=== PATIENT | female | born 1970 | race Hispanic/Latino ===

== ENCOUNTER 2019-09-21 12:41 | Emergency (ER) | payer OTHER ==
[2019-09-21 13:17] LABS: Urine Blood 2+ (NEG); Urine Glucose NEGATIVE (NEG); Urine Protein NEGATIVE (NEG); Urine Specific Gravity 1.015 (1.005-1.030)
[2019-09-21 13:33] LABS: Absolute Lymphocytes (CBC) 2.2 K/uL (0.7-4.9); Basophils % 0.5 % (0-1.3); Lymphocytes % 35.5 % (15.3-44.8); MPV 9.6 fL (7.6-11.3); RBC Red Blood Cell Count 4.49 M/uL (3.86-4.86)
[2019-09-21 13:48] LABS: ALT/SGPT 45 U/L (12-78); AST/SGOT 23 U/L (15-37); Albumin 3.6 g/dL (3.4-5.0); Alkaline Phosphatase 94 U/L (45-117); BUN Blood Urea Nitrogen 17 mg/dL (7-18); Bicarbonate 28 mmol/L (21-32); Bilirubin Direct < 0.1 mg/dL (0-0.2); Bilirubin Total 0.2 mg/dL (0.2-1.0); Glucose Level 92 mg/dL (74-106); Lipase 98 U/L (73-393); Potassium 3.8 mmol/L (3.5-5.1); Protein, Total 7.3 g/dL (6.4-8.2); Sodium Level 140 mmol/L (136-145)
[2019-09-21 13:52] LABS: Urine Bacteria 20-50 /HPF (<20)
[2019-09-21 13:53] LABS: Urine Culture Reflex Order REFLEXED
--- NOTE | 2019-09-21 15:12 | RAD REPORT ---
EXAM DESCRIPTION: CTAbdomen Pelvis W Contrast - 09/21/2019 3:01 pm CLINICAL HISTORY: Abdominal pain. FLANK PAIN COMPARISON: No comparisons TECHNIQUE: Biphasic CT imaging of the abdomen and pelvis was performed with 100 ml non-ionic IV cont rast. All CT scans are performed using dose optimization technique as appropriate and may include automated exposure control or mA/KV adjustment according to patient size. FINDINGS: The lung bases are clear. Mild diffuse fatty liver infiltration is seen. No focal mass or biliary dilatation. The spleen, pancr eas, adrenal glands are normal. 24 mm left renal cyst versus caliceal diverticulum. No right-sided cy st or mass. No hydronephrosis on either side. No bowel obstruction, free air, free fluid or abscess. Small fat containing supraumbilical hernia. Th e appendix is normal. Moderate stool is retained throughout the colon. No evidence of significant lym phadenopathy. No suspicious bony findings. IMPRESSION: No acute intra-abdominal or pelvic finding. Fatty liver.
--- NOTE | 2019-09-21 15:25 | EDPHYS ---
Physician Documentation [facility] Name: Kyra Barboza Age: 49 yrs Sex: Female : 1970 Arrival Date: 09/21/2019 Time: 12:44 Bed 26 Private MD: CORIE Physician Hermelindo Wu HPI: 09/21 13:56 This 49 yrs old Female presents to ER via Ambulatory with complaints of Back pm1 Pain. 13:56 The patient presents with pain that is acute, with no known mechanism of injury. The pm1 symptoms are located in the low back. Onset: The symptoms/episode began/occurred 4 day(s) ago. The pain does not radiate. Associated signs and symptoms: Pertinent positives: bilateral lower back pain when urinating, Pertinent negatives: abdominal pain, dysuria, fever, numbness, tingling, vomiting, weakness. The problem was sustained similar presentation to prior urinary tract infections. Modifying factors: The patient symptoms are alleviated by nothing, the patient symptoms are aggravated by urinating. Severity of symptoms: in the emergency department the symptoms are actually worse. The patient has experienced similar episodes in the past, a few times. 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 - Social history:: Smoking status: Patient/guardian denies using tobacco. - Ebola Screening: : Patient negative for fever greater than or equal to 101.5 degrees Fahrenheit, and additional compatible Ebola Virus Disease symptoms Patient denies exposure to infectious person Patient denies travel to an Ebola-affected area in the 21 days before illness onset No symptoms or risks identified at this time. ROS: 13:56 Constitutional: Negative for fever, chills, and weight loss, Cardiovascular: Negative pm1 for chest pain, palpitations, and edema, Respiratory: Negative for shortness of breath, cough, wheezing, and pleuritic chest pain, Abdomen/GI: Negative for abdominal pain, nausea, vomiting, diarrhea, and constipation. 13:56 : Negative for injury, bleeding, discharge, and swelling, MS/Extremity: Negative for injury and deformity, Skin: Negative for injury, rash, and discoloration, Neuro: Negative for headache, weakness, numbness, tingling, and seizure. 13:56 Back: Positive for of the left low back and right low back, pain, Negative for decreased range of motion. Exam: 13:56 Constitutional: This is a well developed, well nourished patient who is awake, alert, pm1 and in no acute distress. Head/Face: Normocephalic, atraumatic. Neck: Trachea midline, no thyromegaly or masses palpated, and no cervical lymphadenopathy. Supple, full range of motion without nuchal rigidity, or vertebral point tenderness. No Meningismus. Chest/axilla: Normal chest wall appearance and motion. Nontender with no deformity. No lesions are appreciated. Cardiovascular: Regular rate and rhythm with a normal S1 and S2. No gallops, murmurs, or rubs. Normal PMI, no JVD. No pulse deficits. Respiratory: Lungs have equal breath sounds bilaterally, clear to auscultation and percussion. No rales, rhonchi or wheezes noted. No increased work of breathing, no retractions or nasal flaring. Abdomen/GI: Soft, non-tender, with normal bowel sounds. No distension or tympany. No guarding or rebound. No evidence of tenderness throughout. Back: No spinal tenderness. No costovertebral tenderness. Full range of motion. Skin: Warm, dry with normal turgor. Normal color with no rashes, no lesions, and no evidence of cellulitis. MS/ Extremity: Pulses equal, no cyanosis. Neurovascular intact. Full, normal range of motion. 13:56 Neuro: Orientation: is normal, Motor: is normal, moves all fours. Vital Signs: 12:58 BP 118 / 91; Pulse 74; Resp 16 S; Temp 98.1(O); Pulse Ox 97% on R/A; Weight 65.77 kg ca1 (R); Height 5 ft. 2 in. (157.48 cm) (R); Pain 6/10; 13:59 BP 111 / 81; Pulse 65; Resp 18; Pulse Ox 98% on R/A; mg2 15:20 BP 119 / 86; Pulse 62; Resp 18; Pulse Ox 100% on R/A; mg2 12:58 Body Mass Index 26.52 (65.77 kg, 157.48 cm) ca1 MDM: 12:55 Patient medically screened. marina 13:10 ED course: Patient refused pain medications. pm1 13:46 Data reviewed: vital signs. Data interpreted: Pulse oximetry: on room air is 97 %. pm1 Interpretation: normal. 15:23 Counseling: I had a detailed discussion with the patient and/or guardian regarding: the pm1 historical points, exam findings, and any diagnostic results supporting the discharge/admit diagnosis, lab results, radiology results, the need for outpatient follow up, to return to the emergency department if symptoms worsen or persist or if there are any questions or concerns that arise at home. 09/21 13:05 Order name: Urine Dipstick--Ancillary (enter results); Complete Time: 13:40 ms 09/21 13:09 Order name: Basic Metabolic Panel; Complete Time: 13:54 pm1 09/21 13:09 Order name: CBC with Diff; Complete Time: 13:40 pm1 09/21 13:09 Order name: Creatinine for Radiology; Complete Time: 13:49 pm1 09/21 13:09 Order name: Hepatic Function; Complete Time: 13:54 pm1 09/21 13:09 Order name: Lipase; Complete Time: 13:54 pm1 09/21 13:09 Order name: IV Saline Lock; Complete Time: 13:59 pm1 09/21 13:09 Order name: Labs collected and sent; Complete Time: 13:59 pm1 09/21 13:09 Order name: Urine Test (obtain specimen); Complete Time: 14:35 pm1 09/21 13:09 Order name: Urine Microscopic Only; Complete Time: 13:54 pm1 09/21 13:09 Order name: CT Abd/Pelvis - IV Contrast Only; Complete Time: 15:21 pm1 09/21 13:54 Order name: Urine Culture EDMS Administered Medications: 15:33 Drug: Rocephin 1 grams Route: IV; Rate: calculated rate; Site: right antecubital; mg2 15:33 Follow up: Response: No adverse reaction; IV Status: Completed infusion mg2 Disposition: 09/22 07:31 Co-signature as Attending Physician, Hermelindo Wu MD I agree with the assessment and marina plan of care. Disposition: 09/21/19 15:23 Discharged to Home. Impression: Urinary tract infection, site not specified, Low back pain. - Condition is Stable. - Discharge Instructions: Back Pain, Adult, Urinary Tract Infection, Adult. - Prescriptions for Bactrim DS 800- 160 mg Oral Tablet - take 1 tablet by ORAL route every 12 hours for 10 days; 20 tablet. - Medication Reconciliation Form, Thank You Letter, Antibiotic Education, Prescription Opioid Use form. - Follow up: Emergency Department; When: As needed; Reason: Worsening of condition. Follow up: Private Physician; When: 2 - 3 days; Reason: Recheck today's complaints, Continuance of care, Re-evaluation by your physician. - Problem is new. - Symptoms have improved. Signatures: Dispatcher [employer] EDMS Hermelindo Wu MD MD cha Marinas, Patrick, NP VERIFIER OPERATOR pm1 Rashid Baldwin RN RN mg2 Libby Diego RN RN ca1 Corrections: (The following items were deleted from the chart) 09/21 15:40 15:23 09/21/2019 15:23 Discharged to Home. Impression: Urinary tract infection, site mg2 not specified; Low back pain. Condition is Stable. Forms are Medication Reconciliation Form, Thank You Letter, Antibiotic Education, Prescription Opioid Use. Follow up: Emergency Department; When: As needed; Reason: Worsening of condition. Follow up: Private Physician; When: 2 - 3 days; Reason: Recheck today's complaints, Continuance of care, Re-evaluation by your physician. Problem is new. Symptoms have improved. pm1
--- NOTE | 2019-09-21 15:25 | ER ---
Nurse's Notes [facility] Name: Kyra Barboza Age: 49 yrs Sex: Female : 1970 Arrival Date: 09/21/2019 Time: 12:44 Bed 26 Private MD: Diagnosis: Urinary tract infection, site not specified;Low back pain Presentation: 09/21 12:57 Presenting complaint: Patient states: mid and low back pain started 4 days ago. Denies ca1 fever and urinary s/s. Transition of care: patient was not received from another setting of care. Onset of symptoms was September 21, 2019. Risk Assessment: Do you want to hurt yourself or someone else? Patient reports no desire to harm self or others. Initial Sepsis Screen: Does the patient meet any 2 criteria? No. Patient's initial sepsis screen is negative. Does the patient have a suspected source of infection? No. Patient's initial sepsis screen is negative. Care prior to arrival: None. 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 - Social history:: Smoking status: Patient/guardian denies using tobacco. - Ebola Screening: : Patient negative for fever greater than or equal to 101.5 degrees Fahrenheit, and additional compatible Ebola Virus Disease symptoms Patient denies exposure to infectious person Patient denies travel to an Ebola-affected area in the 21 days before illness onset No symptoms or risks identified at this time. Screenin:56 Abuse screen: Denies threats or abuse. Denies injuries from another. Nutritional mg2 screening: No deficits noted. Tuberculosis screening: No symptoms or risk factors identified. Fall Risk IV access (20 points). Assessment: 13:54 General: Appears in no apparent distress. comfortable, Behavior is calm, cooperative. mg2 Pain: Complains of pain in back Pain does not radiate. Pain currently is 2 out of 10 on a pain scale. Quality of pain is described as aching, Pain began 2-3 days ago. Is intermittent. Neuro: Level of Consciousness is awake, alert, obeys commands, Oriented to person, place, time, situation. Cardiovascular: Capillary refill < 3 seconds Patient's skin is warm and dry. Respiratory: Airway is patent Respiratory effort is even, unlabored, Respiratory pattern is regular, symmetrical. GI: No signs and/or symptoms were reported involving the gastrointestinal system. : Reports pain in bilateral flank(s). EENT: No signs and/or symptoms were reported regarding the EENT system. Derm: Skin is intact, is healthy with good turgor, Skin is pink, warm \T\ dry. normal. Musculoskeletal: Reports pain in back. Vital Signs: 12:58 BP 118 / 91; Pulse 74; Resp 16 S; Temp 98.1(O); Pulse Ox 97% on R/A; Weight 65.77 kg ca1 (R); Height 5 ft. 2 in. (157.48 cm) (R); Pain 6/10; 13:59 BP 111 / 81; Pulse 65; Resp 18; Pulse Ox 98% on R/A; mg2 15:20 BP 119 / 86; Pulse 62; Resp 18; Pulse Ox 100% on R/A; mg2 12:58 Body Mass Index 26.52 (65.77 kg, 157.48 cm) ca1 ED Course: 12:44 Patient arrived in ED. mr 12:52 [place] Hairsh, TIME SIGNAL WIRER is PHCP. pm1 12:52 Hermelindo Wu MD is Attending Physician. pm1 12:58 Triage completed. ca1 12:58 Arm band placed on right wrist. ca1 13:12 Rashid Baldwin, CAROLANN is Primary Nurse. mg2 13:58 Patient has correct armband on for positive identification. Pulse ox on. NIBP on. Door mg2 closed. Warm blanket given. 13:58 No provider procedures requiring assistance completed. Inserted saline lock: 20 gauge mg2 in right antecubital area, using aseptic technique. Blood collected. 14:59 CT completed. Pt tolerated procedure poorly. Patient moved back from CT. bq 15:01 CT Abd/Pelvis - IV Contrast Only In Process Unspecified. EDMS 15:34 IV discontinued, intact, bleeding controlled, No redness/swelling at site. Pressure mg2 dressing applied. Administered Medications: 15:33 Drug: Rocephin 1 grams Route: IV; Rate: calculated rate; Site: right antecubital; mg2 15:33 Follow up: Response: No adverse reaction; IV Status: Completed infusion mg2 Outcome: 15:23 Discharge ordered by . pm1 15:40 Discharged to home ambulatory. mg2 15:40 Condition: stable 15:40 Discharge instructions given to patient, Instructed on discharge instructions, follow up and referral plans. medication usage, Demonstrated understanding of instructions, follow-up care, medications, Prescriptions given X 1. 15:40 Patient left the ED. mg2 Addendum: 09/24/2019 08:36 Addendum: Culture Results: Positive urine culture. No further action required. Bacteria i w sensitive to prescribed antibiotic. Signatures: Dispatcher [employer] EDTN AbisaiJosefabroderickRaya Irene, CAROLANN RN iw Harish Molina, BONNIE TIME SIGNAL WIRER pm1 Rashid Baldwin RN RN mg2 Libby Diego RN RN ca1 Corrections: (The following items were deleted from the chart) 09/21 13:47 12:57 Acuity: SATYA 4 ca1 mg2
[2019-09-21] MEDS ORDERED: CEFTRIAXONE/SWI 1gm 1 GM/10 ML SYR ONE (15:29)
[2019-09-21 16:01] VITALS: TEMP 98.1
[2019-09-21 16:05] VITALS: BP 119/86; O2SAT 100
== END 2019-09-21 15:40 | disposition home or self-care (01) ==
LOC: ER 12:41
DX: N39.0 Urinary tract infection, site not specified (principal); Z88.3 Allergy status to other anti-infective agents; Z88.5 Allergy status to narcotic agent
CPT/HCPCS: 87088; 85025; 87086; 80048; 36415; 80076; 87077; 87186; 83690; 74177; 96374; 99284; Q9967; J0696; 81003; 81015

== ENCOUNTER 2020-05-02 14:25 | Emergency (ER) | payer OTHER ==
--- OUTSIDE RECORDS SUMMARY | 2020-05-02 14:27 | XMS REPORT | Continuity of Care Document ---
:1970 Author Organization [facility] t Address [address] [place] [address] Care Team Providers Name Role Phone Unavailable Unavailable Unavailable Problems Condition Condition Condition Status Onset Resolution Last Treating Co mments Source Name Details Category Date Date Treatment Clinician Date Renal cyst Renal cyst Problem Active [facility] Rash and Rash and Problem [facility] Allergies, Adverse Reactions, Alerts This patient has no known allergies or adverse reactions. Medications This patient has no known medications. Procedures This patient has no known procedures. Encounters Start End Encounter Admission Attending Care Care Encounter Source Date/Time Date/Time Type Type Clinicians Facility Department ID 2019-12-21 2019-12-21 [facility] [id number] [facility] 13:17:00 13:17:00 [facility] Outpat[facility] Clin[facility] 2019-12-10 2019-12-10 [facility] [id number] [facility] 08:00:00 08:00:00 [facility] Outpat[facility] Clinics 2019-09-29 2019-09-29 [facility] [id number] [facility] 02:38:00 02:38:00 [facility] Out[facility] Clin[facility] 2019-09-25 2019-09-25 [facility] [id number] [facility] 15:15:00 15:15:00 [facility] Outpat[facility] Clinics Results This patient has no known results.
--- NOTE | 2020-05-02 14:59 | EDPHYS ---
Physician Documentation [facility] Name: Kyra Barboza Age: 49 yrs Sex: Female : 1970 Arrival Date: 05/02/2020 Time: 14:27 Bed 16 Private MD: ED Physician Sania Rosa HPI: 05/02 14:57 This 49 yrs old Female presents to ER via Ambulatory with complaints of Lower pm1 Back Pain. 14:57 The patient presents with pain that is acute, with no known mechanism of injury. The pm1 symptoms are located in the low back. The pain does not radiate. The problem was sustained Her typical presentation of urinary tract infections. Onset: The symptoms/episode began/occurred 1 week(s) ago. Modifying factors: The patient symptoms are alleviated by nothing, the patient symptoms are aggravated by nothing. Associated signs and symptoms: Pertinent negatives: abdominal pain, dysuria, fever, headache, nausea, vomiting. Severity of symptoms: in the emergency department the symptoms are actually worse. The patient has experienced similar episodes in the past, a few times. The patient has not recently seen a physician. Historical: - Allergies: 14:33 Codeine; sv 14:33 Erythromycin; sv 14:33 narcotic pain meds; sv - PMHx: 14:33 None; sv - PSHx: 14:33 ; sv - Immunization history:: Adult Immunizations up to date. - Social history:: Smoking status: Patient denies any tobacco usage or history of. ROS: 14:57 Constitutional: Negative for fever, chills, and weight loss, Cardiovascular: Negative pm1 for chest pain, palpitations, and edema, Respiratory: Negative for shortness of breath, cough, wheezing, and pleuritic chest pain, Abdomen/GI: Negative for abdominal pain, nausea, vomiting, diarrhea, and constipation. 14:57 : Negative for injury, bleeding, discharge, and swelling, MS/Extremity: Negative for injury and deformity, Skin: Negative for injury, rash, and discoloration, Neuro: Negative for headache, weakness, numbness, tingling, and seizure. 14:57 Back: Positive for flank pain, bilaterally. Exam: 14:57 Constitutional: This is a well developed, well nourished patient who is awake, alert, pm1 and in no acute distress. Head/Face: Normocephalic, atraumatic. 14:57 Back: No spinal tenderness. No costovertebral tenderness. Full range of motion. Skin: Warm, dry with normal turgor. Normal color with no rashes, no lesions, and no evidence of cellulitis. MS/ Extremity: Pulses equal, no cyanosis. Neurovascular intact. Full, normal range of motion. 14:57 Cardiovascular: Exam negative for acute changes, Rate: normal, Rhythm: regular, Pulses: no pulse deficits are appreciated. 14:57 Respiratory: Exam negative for acute changes, respiratory distress, shortness of breath. 14:57 Abdomen/GI: Exam negative for acute changes, Inspection: abdomen appears normal, Palpation: abdomen is soft and non-tender, in all quadrants. 14:57 Neuro: Exam negative for acute changes, Orientation: is normal, Mentation: is normal, Motor: is normal, moves all fours. Vital Signs: 14:33 BP 110 / 83; Pulse 83; Resp 16; Temp 98.9(O); Pulse Ox 100% ; Weight 72.57 kg; Height 5 sv ft. 0 in. (152.40 cm); 14:33 Body Mass Index 31.25 (72.57 kg, 152.40 cm) sv MDM: 14:52 Patient medically screened. pm1 14:57 Data reviewed: vital signs. Data interpreted: Pulse oximetry: on room air is 100 %. pm1 Interpretation: normal. Counseling: I had a detailed discussion with the patient and/or guardian regarding: the historical points, exam findings, and any diagnostic results supporting the discharge/admit diagnosis, the need for outpatient follow up, to return to the emergency department if symptoms worsen or persist or if there are any questions or concerns that arise at home. 05/02 14:57 Order name: Urine Microscopic Only pm1 05/02 15:27 Order name: Urine Dipstick--Ancillary (enter results); Complete Time: 15:39 eb 05/02 14:57 Order name: Urine Dipstick-Ancillary (obtain specimen); Complete Time: 15:15 pm1 05/02 14:57 Order name: Urine Test (obtain specimen); Complete Time: 15:15 pm1 05/02 15:27 Order name: Urine --Ancillary (enter results); Complete Time: 15:39 eb Administered Medications: No medications were administered Disposition: 18:20 Co-signature as Attending Physician, Sania Rosa MD. ma2 Disposition: 05/02/20 14:58 Discharged to Home. Impression: Urinary tract infection, site not specified. - Condition is Stable. - Discharge Instructions: Urinary Tract Infection, Adult. - Prescriptions for Bactrim DS 800- 160 mg Oral Tablet - take 1 tablet by ORAL route every 12 hours for 10 days; 20 tablet. - Medication Reconciliation Form, Thank You Letter, Antibiotic Education, Prescription Opioid Use form. - Follow up: Emergency Department; When: As needed; Reason: Worsening of condition. Follow up: Private Physician; When: 2 - 3 days; Reason: Recheck today's complaints, Continuance of care, Re-evaluation by your physician. - Problem is new. - Symptoms have improved. Signatures: Dispatcher [employer] Lauren Michaud RN RN Harish Royal, ACCOUNTS ADJUSTABLE CLERK ACCOUNTS ADJUSTABLE CLERK pm1 Sania Rosa MD MD ma2 Corrections: (The following items were deleted from the chart) 15:48 14:58 05/02/2020 14:58 Discharged to Home. Impression: Urinary tract infection, site sv not specified. Condition is Stable. Forms are Medication Reconciliation Form, Thank You Letter, Antibiotic Education, Prescription Opioid Use. Follow up: Emergency Department; When: As needed; Reason: Worsening of condition. Follow up: Private Physician; When: 2 - 3 days; Reason: Recheck today's complaints, Continuance of care, Re-evaluation by your physician. Problem is new. Symptoms have improved. pm1
--- NOTE | 2020-05-02 14:59 | ER ---
Nurse's Notes [facility] Name: Kyra Barboza Age: 49 yrs Sex: Female : 1970 Arrival Date: 05/02/2020 Time: 14:27 Bed 16 Private MD: Diagnosis: Urinary tract infection, site not specified Presentation: 05/02 14:32 Chief complaint: Patient states: right low back pain, feels like back is on fire. sv Coronavirus screen: Client denies travel out of the [place] in the last 14 days. At this time, the client does not indicate any symptoms associated with coronavirus-19. Ebola Screen: No symptoms or risks identified at this time. Risk Assessment: Do you want to hurt yourself or someone else? Patient reports no desire to harm self or others. Onset of symptoms was May 02, 2020. 14:32 Method Of Arrival: Ambulatory sv 14:32 Acuity: SATYA 4 sv 14:33 Initial Sepsis Screen: Does the patient meet any 2 criteria? No. Patient's initial sv sepsis screen is negative. Does the patient have a suspected source of infection? No. Patient's initial sepsis screen is negative. Triage Assessment: 14:57 General: Appears in no apparent distress. comfortable. General: Appears Behavior is ls4 calm, cooperative. Pain: Complains of pain in left low back, left mid back, right mid back and right low back Pain currently is 8 out of 10 on a pain scale. Quality of pain is described as burning. Neuro: No deficits noted. Respiratory: No deficits noted. GI: No deficits noted. : Reports pain in bilateral flank(s). Historical: - Allergies: 14:33 Codeine; sv 14:33 Erythromycin; sv 14:33 narcotic pain meds; sv - PMHx: 14:33 None; sv - PSHx: 14:33 ; sv - Immunization history:: Adult Immunizations up to date. - Social history:: Smoking status: Patient denies any tobacco usage or history of. Screenin:58 Abuse screen: Denies threats or abuse. Denies injuries from another. Nutritional ls4 screening: No deficits noted. Tuberculosis screening: No symptoms or risk factors identified. Fall Risk None identified. Assessment: 14:58 General: see triage. ls4 Vital Signs: 14:33 BP 110 / 83; Pulse 83; Resp 16; Temp 98.9(O); Pulse Ox 100% ; Weight 72.57 kg; Height 5 sv ft. 0 in. (152.40 cm); 14:33 Body Mass Index 31.25 (72.57 kg, 152.40 cm) sv ED Course: 14:27 Patient arrived in ED. ds1 14:32 Arm band placed on. sv 14:33 Triage completed. sv 14:43 Harish Molina NP is PHCP. pm1 14:43 Sania Rosa MD is Attending Physician. pm1 14:57 Lorri Gonzalez, RN is Primary Nurse. ls4 14:58 No apparent distress. ls4 14:58 Patient has correct armband on for positive identification. Bed in low position. Call ls4 light in reach. Side rails up X 1. Pulse ox on. NIBP on. Verbal reassurance given. 14:58 No provider procedures requiring assistance completed. Patient did not have IV access ls4 during this emergency room visit. Patient maintains SpO2 saturation greater than 95% on room air. Administered Medications: No medications were administered Outcome: 14:58 Discharge ordered by . pm1 15:48 Patient left the ED. sv Signatures: Lauren Olvera, RN RN Vilma Verma ds1 Harish Molina NP PET CARETAKER pm1 Lorri Gonzalez, RN RN ls4
[2020-05-02 15:38] LABS: Urine Blood 2+ (NEG); Urine Glucose NEGATIVE (NEG); Urine Protein NEGATIVE (NEG); Urine pH 5.5 (5.0-7.0)
[2020-05-02 15:51] LABS: Urine Bacteria <20 /HPF (<20); Urine Culture Reflex Order NOT NEEDED
[2020-05-02 15:52] VITALS: BP 110/83; TEMP 98.9; O2SAT 100
== END 2020-05-02 15:48 | disposition home or self-care (01) ==
LOC: ER 14:25
DX: N39.0 Urinary tract infection, site not specified (principal); Z88.3 Allergy status to other anti-infective agents; Z88.5 Allergy status to narcotic agent
CPT/HCPCS: 81003; 81015; 81025; 99284

== ENCOUNTER 2020-12-26 06:55 | Emergency (ER) | payer OTHER ==
--- OUTSIDE RECORDS SUMMARY | 2020-12-26 06:57 | XMS REPORT | Continuity of Care Document ---
:1970 Author Organization [facility] t Address [address] [place] [address] Care Team Providers Name Role Phone Unavailable [...] c skin c skin [facility] Allergies, Adverse Reactions, Alerts This patient has no known allergies or adverse reactions. Medications This patient has no known medications. Procedures This patient has no known procedures. Encounters Start End Encounter Admission Attending Care Care Encounter Source Date/Time Date/Time Type Type Clinicians Facility Department ID 2019-12-21 2019-12-21 [facility] [id number] [facility] 13:17:00 13:17:00 [facility] Medicine Outpati ent Clinics 2019-12-10 2019-12-10 [facility] [id number] [facility] 08:00:00 08:00:00 [facility] Medicine Outpati ent Clinics 2019-09-29 2019-09-29 [facility] [id number] [facility] 02:38:00 02:38:00 [facility] Medicine Outpati ent Clinics 2019-09-25 2019-09-25 [facility] [id number] [facility] 15:15:00 15:15:00 [facility] Medicine Outpati ent Clinics Results This patient has no known results.
[2020-12-26 07:35] LABS: Urine Blood 1+ (Negative); Urine Glucose Negative (Negative); Urine Protein Negative (Negative); Urine Specific Gravity 1.025 (1.005-1.030)
[2020-12-26 08:08] LABS: Urine Bacteria 20-50 /HPF (<20); Urine Urothelial Cells <5 /HPF (NONE SEEN)
[2020-12-26 08:10] LABS: Urine Specific Gravity/Preg 1.025 (1.005-1.030)
[2020-12-26 08:29] LABS: SARS-COV-2 RT PCR NEGATIVE (NEGATIVE)
--- NOTE | 2020-12-26 08:35 | RAD REPORT ---
EXAM DESCRIPTION: RAD - Chest Single View - 12/26/2020 8:06 am CLINICAL HISTORY: COUGH Chest pain. COMPARISON: No comparisons FINDINGS: Portable technique limits examination quality. The lungs are grossly clear. The heart is normal in size. No displaced fractures. IMPRESSION: No acute intrathoracic process suspected.
--- NOTE | 2020-12-26 08:40 | EDPHYS ---
Physician Documentation [facility] Name: Kyra aBrboza Age: 50 yrs Sex: Female : 1970 Arrival Date: 12/26/2020 Time: 06:57 Bed 6 Private MD: ED Physician Wilfredo Gardner HPI: 12/26 07:40 This 50 yrs old Female presents to ER via Ambulatory with complaints of Cough, rn UTI. 07:40 The patient or guardian reports cough. Onset: The symptoms/episode began/occurred 1 rn week(s) ago. Severity of symptoms: At their worst the symptoms were mild, in the emergency department the symptoms are unchanged. Modifying factors: The symptoms are alleviated by nothing, the symptoms are aggravated by nothing. Associated signs and symptoms: Pertinent positives: sore throat. 07:41 The patient has experienced similar episodes in the past. The patient has not recently rn seen a physician. Reports 1 week of cough, sore throat, congestion, sinus pressure and headache, not improving, no fever. No chronic lung problems, non-smoker. Also would like to get checked for uti since "gets UTI's when weather changes". . Historical: - Allergies: 07:15 Codeine; sv 07:15 Erythromycin; sv 07:15 narcotic pain meds; sv - PMHx: 07:15 UTI; sv - PSHx: 07:15 ; sv - Immunization history:: Client reports having NOT received the Covid vaccine. Flu vaccine is not up to date. - Social history:: Smoking status: Patient denies any tobacco usage or history of. - Family history:: not pertinent. - Hospitalizations: : No recent hospitalization is reported. ROS: 07:41 Constitutional: Negative for fever, chills, and weight loss, Eyes: Negative for injury, rn pain, redness, and discharge, ENT: + congestion and sore throat Cardiovascular: Negative for chest pain, palpitations, and edema, Respiratory: + cough, neg for sob Abdomen/GI: Negative for abdominal pain, nausea, vomiting, diarrhea, and constipation, Back: Negative for injury and pain, : Negative for injury, bleeding, discharge, and swelling, MS/Extremity: Negative for injury and deformity, Skin: Negative for injury, rash, and discoloration, Neuro: Negative for headache, weakness, numbness, tingling, and seizure. Exam: 07:41 Constitutional: This is a well developed, well nourished patient who is awake, alert, rn and in no acute distress. Head/Face: Normocephalic, atraumatic. Eyes: Pupils equal round and reactive to light, extra-ocular motions intact. Lids and lashes normal. Conjunctiva and sclera are non-icteric and not injected. Cornea within normal limits. Periorbital areas with no swelling, redness, or edema. ENT: No stridor Neck: Trachea midline, no thyromegaly or masses palpated, and no cervical lymphadenopathy. Supple, full range of motion without nuchal rigidity, or vertebral point tenderness. No Meningismus. Cardiovascular: Regular rate and rhythm. No pulse deficits. Respiratory: No increased work of breathing, no retractions or nasal flaring. Abdomen/GI: soft, non-tender Skin: Warm, dry MS/ Extremity: Pulses equal, no cyanosis. Neurovascular intact. Full, normal range of motion. Equal circumference. Neuro: Awake and alert, GCS 15, oriented to person, place, time, and situation. Cranial nerves II-XII grossly intact. Motor strength 5/5 in all extremities. Sensory grossly intact. Cerebellar exam normal. Normal gait. Vital Signs: 07:13 BP 124 / 93; Pulse 71; Resp 16; Temp 97; Pulse Ox 100% ; Weight 65.77 kg; Height 5 ft. sv 0 in. (152.40 cm); Pain 0/10; 07:13 Body Mass Index 28.32 (65.77 kg, 152.40 cm) sv MDM: 07:07 Patient medically screened. rn 08:39 Differential Diagnosis: Bronchitis Influenza Upper Respiratory Infection Viral Syndrome rn Pneumonia. Data reviewed: vital signs, nurses notes, lab test result(s), radiologic studies, plain films, and as a result, I will discharge patient. Counseling: I had a detailed discussion with the patient and/or guardian regarding: the historical points, exam findings, and any diagnostic results supporting the discharge/admit diagnosis, lab results, radiology results, the need for outpatient follow up, to return to the emergency department if symptoms worsen or persist or if there are any questions or concerns that arise at home. Response to treatment: There is no appreciated change of the patient's symptoms at this time, and as a result, I will discharge patient. Special discussion: I discussed with the patient/guardian in detail that at this point there is no indication for admission to the hospital. It is understood, however, that if the symptoms persist or worsen the patient needs to return immediately for re-evaluation. ED course: Pt neg for COVID/flu, neg cxr, + possible UTi. . 12/26 07:21 Order name: Strep; Complete Time: 08:37 rn 12/26 07:21 Order name: Urine Microscopic Only; Complete Time: 08:37 rn 12/26 07:35 Order name: Urine Dipstick-Ancillary; Complete Time: 07:41 EDMS 12/26 07:53 Order name: Urine --Ancillary (enter results) eb 12/26 07:21 Order name: XRAY Chest (1 view); Complete Time: 08:37 rn 12/26 07:21 Order name: Urine Dipstick-Ancillary (obtain specimen); Complete Time: 08:04 12/26 07:54 Order name: Urine --Ancillary; Complete Time: 08:37 EDNM 12/26 08:10 Order name: Urine Culture [facility] 12/26 08:18 Order name: Throat Culture [facility] 12/26 08:29 Order name: COVID-19/FLU A+B; Complete Time: 08:37 EDMS Administered Medications: No medications were administered Disposition: 12/26/20 08:40 Discharged to Home. Impression: Cough, Acute upper respiratory infection, unspecified, Urinary tract infection, site not specified. - Condition is Stable. - Discharge Instructions: Urinary Tract Infection, Adult, Viral Respiratory Infection, Cough, Adult. - Prescriptions for Keflex 500 mg Oral Capsule - take 1 capsule by ORAL route every 12 hours for 10 days; 20 capsule. - Medication Reconciliation Form, Thank You Letter, Antibiotic Education, Prescription Opioid Use, Work release form form. - Follow up: Private Physician; When: As needed; Reason: Recheck today's complaints, Re-evaluation by your physician. - Problem is new. - Symptoms have improved. Signatures: Dispatcher [facility] Lauren Olvera RN RN sv Nieto, Roman, MD MD rn Smirch, Shelby, RN RN Corrections: (The following items were deleted from the chart) 07:45 07:22 CORONAVIRUS+MR.LAB.BRZ ordered. [facility] 07:46 07:22 Influenza Screen (A \\T\\ B)+BA.LAB.BRZ ordered. [facility] 08:58 08:40 12/26/2020 08:40 Discharged to Home. Impression: Cough; Acute upper respiratory ss infection, unspecified; Urinary tract infection, site not specified. Condition is Stable. Forms are Medication Reconciliation Form, Thank You Letter, Antibiotic Education, Prescription Opioid Use. Follow up: Private Physician; When: As needed; Reason: Recheck today's complaints, Re-evaluation by your physician. Problem is new. Symptoms have improved. rn
--- NOTE | 2020-12-26 08:40 | ER ---
Nurse's Notes [facility] Name: Kyra Barboza Age: 50 yrs Sex: Female : 1970 Arrival Date: 12/26/2020 Time: 06:57 Bed 6 Private MD: Diagnosis: Cough;Acute upper respiratory infection, unspecified;Urinary tract infection, site not specified Presentation: 12/26 07:13 Chief complaint: Patient states: tickle in her throat that causes a cough for awhile sv and "urine smells" and low back pain x 1 month. Coronavirus screen: Client denies travel out of the [place] in the last 14 days. Client presents with at least one sign or symptom that may indicate coronavirus-19. Standard/surgical mask placed on the client. Provider contacted for isolation considerations. Ebola Screen: No symptoms or risks identified at this time. Initial Sepsis Screen: Does the patient meet any 2 criteria? No. Patient's initial sepsis screen is negative. Does the patient have a suspected source of infection? No. Patient's initial sepsis screen is negative. Risk Assessment: Do you want to hurt yourself or someone else? Patient reports no desire to harm self or others. Onset of symptoms was November 2020. 07:13 Method Of Arrival: Ambulatory sv 07:13 Acuity: SATYA 3 sv Historical: - Allergies: 07:15 Codeine; sv 07:15 Erythromycin; sv 07:15 narcotic pain meds; sv - PMHx: 07:15 UTI; sv - PSHx: 07:15 ; sv - Immunization history:: Client reports having NOT received the Covid vaccine. Flu vaccine is not up to date. - Social history:: Smoking status: Patient denies any tobacco usage or history of. - Family history:: not pertinent. - Hospitalizations: : No recent hospitalization is reported. Screenin:39 Abuse screen: Denies threats or abuse. Denies injuries from another. Nutritional ss screening: No deficits noted. Tuberculosis screening: Never had TB. Fall Risk None identified. Assessment: 07:39 General: Appears in no apparent distress. comfortable, Behavior is calm, cooperative, ss Denies fever, feeling ill, fatigue, chills. Pain: Denies pain. 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 Gait is steady, Speech is normal, Facial symmetry appears normal, Denies weakness dizziness, headache. Cardiovascular: Capillary refill < 3 seconds is brisk in bilateral fingers. Respiratory: Airway is patent Respiratory effort is even, unlabored, Respiratory pattern is regular, symmetrical. Respiratory: Reports cough that is dry, "like a tickle". GI: Abdomen is non-distended, Abd is soft and non tender X 4 quads. Patient currently denies abdominal pain, diarrhea, nausea, vomiting. : Reports odorous urine Denies burning with urination, urinary frequency. EENT: Nares are clear Oral mucosa is moist. Derm: Skin is pink, warm \\T\\ dry. normal. Musculoskeletal: Circulation, motion, and sensation intact. Range of motion: intact in all extremities, Swelling absent. 08:27 Reassessment: Patient appears in no apparent distress at this time. Patient and/or hb family updated on plan of care and expected duration. Pain level reassessed. Patient is alert, oriented x 3, equal unlabored respirations, skin warm/dry/pink. 08:57 Reassessment: Patient appears in no apparent distress at this time. Patient and/or ss family updated on plan of care and expected duration. Pain level reassessed. Vital Signs: 07:13 BP 124 / 93; Pulse 71; Resp 16; Temp 97; Pulse Ox 100% ; Weight 65.77 kg; Height 5 ft. sv 0 in. (152.40 cm); Pain 0/10; 07:13 Body Mass Index 28.32 (65.77 kg, 152.40 cm) sv ED Course: 06:57 Patient arrived in ED. bp1 07:07 Wilfredo Gardner MD is Attending Physician. rn 07:14 Triage completed. sv 07:15 Arm band placed on. sv 07:36 Siena Burt, CAROLANN is Primary Nurse. ss 07:39 Patient has correct armband on for positive identification. Bed in low position. Call ss light in reach. Side rails up X 1. Pulse ox on. NIBP on. Warm blanket given. 08:06 XRAY Chest (1 view) In Process Unspecified. EDMS 08:57 No provider procedures requiring assistance completed. Patient did not have IV access ss during this emergency room visit. Administered Medications: No medications were administered Outcome: 08:40 Discharge ordered by . carolann 08:57 Discharged to home ambulatory. 08:57 Condition: good 08:57 Discharge instructions given to patient, Instructed on discharge instructions, follow up and referral plans. medication usage, Demonstrated understanding of instructions, follow-up care, medications, Prescriptions given X 1. 08:58 Patient left the ED. Signatures: Dispatcher [employer] EDLauren Rowan RN RN Wilfredo Gardner MD MD rn Smirch, Shelby, RN RN Riddhi Bustos RN Yanique Cu[facility]
[2020-12-26 09:12] VITALS: BP 124/93; TEMP 97; O2SAT 100
== END 2020-12-26 08:58 | disposition home or self-care (01) ==
LOC: ER 06:55
DX: J06.9 Acute upper respiratory infection, unspecified (principal); N39.0 Urinary tract infection, site not specified; Z88.3 Allergy status to other anti-infective agents; Z88.5 Allergy status to narcotic agent; Z20.822 Contact with and (suspected) exposure to COVID-19
CPT/HCPCS: 87070; 87088; 87086; 81025; 87081; 0240U; 71045; 99283; 81003; 81015

== ENCOUNTER 2021-03-14 11:42 | Emergency (ER) | payer OTHER ==
--- OUTSIDE RECORDS SUMMARY | 2021-03-14 11:44 | XMS REPORT | Continuity of Care Document ---
:1970 Author Organization [facility] t Address [address] [place] [address] Care Team Providers Name Role Phone Unavailable [...] c skin c skin Memoria eruption [facility] Allergies, Adverse Reactions, Alerts This patient has no known allergies or adverse reactions. Medications This patient has no known medications. Procedures This patient has no known procedures. Encounters Start End Encounter Admission Attending Care Care Encounter Source Date/Time Date/Time Type Type Clinicians Facility Department ID 2019-12-21 2019-12-21 [facility] [id number] [facility] 13:17:00 13:17:00 [facility] Medicine Outpati ent Clinics 2019-12-10 2019-12-10 [facility] [id number] [facility] 08:00:00 08:00:00 [facility] Medicine Outpati ent Clinics 2019-09-29 2019-09-29 [facility] [id number] [facility] 02:38:00 02:38:00 [facility] Medicine Outpati ent Clinics 2019-09-25 2019-09-25 [facility] [id number] [facility] 15:15:00 15:15:00 [facility] Medicine Outpati ent Clinics Results This patient has no known results.
--- NOTE | 2021-03-14 12:12 | ER ---
Nurse's Notes [facility] Name: Kyra Barboza Age: 50 yrs Sex: Female : 1970 Arrival Date: 03/14/2021 Time: 11:44 Bed 5 Private MD: Diagnosis: Acute sinusitis Presentation: 03/14 11:46 Chief complaint: Patient states: "I have been having really bad headaches, sinus jd3 pressure and congestion with green colored mucous.". Coronavirus screen: At this time, the client does not indicate any symptoms associated with coronavirus-19. Ebola Screen: Patient negative for fever greater than or equal to 101.5 degrees Fahrenheit, and additional compatible Ebola Virus Disease symptoms. Initial Sepsis Screen: Does the patient meet any 2 criteria? No. Patient's initial sepsis screen is negative. Does the patient have a suspected source of infection? No. Patient's initial sepsis screen is negative. Risk Assessment: Do you want to hurt yourself or someone else? Patient reports no desire to harm self or others. Onset of symptoms was March 12, 2021. 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 - Social history:: Smoking status: Patient denies any tobacco usage or history of. Screenin:00 Abuse screen: Denies threats or abuse. Denies injuries from another. Nutritional hb screening: No deficits noted. Tuberculosis screening: No symptoms or risk factors identified. Fall Risk None identified. Assessment: 12:00 General: Appears in no apparent distress. Behavior is calm, cooperative. Pain: Pain hb currently is 3 out of 10 on a pain scale. Neuro: Level of Consciousness is awake, alert, obeys commands, Oriented to person, place, time, situation. Cardiovascular: Patient's skin is warm and dry. Respiratory: Respiratory effort is even, unlabored, Respiratory pattern is regular, symmetrical. GI: No signs and/or symptoms were reported involving the gastrointestinal system. : No signs and/or symptoms were reported regarding the genitourinary system. EENT: Reports dinus congestion and drainage. Derm: Skin is pink, warm \\T\\ dry. Musculoskeletal: No signs and/or symptoms reported regarding the musculoskeletal system. Vital Signs: 11:48 BP 108 / 74; Pulse 82; Resp 17 S; Temp 97.9(TE); Pulse Ox 97% on R/A; Weight 62.6 kg jd3 (R); Height 5 ft. 0 in. (152.40 cm) (R); Pain 3/10; 11:48 Body Mass Index 26.95 (62.60 kg, 152.40 cm) jd3 ED Course: 11:44 Patient arrived in ED. ds1 11:47 Triage completed. jd3 11:49 Arm band placed on. jd3 12:00 Riddhi Bustos, RN is Primary Nurse. hb 12:00 Patient has correct armband on for positive identification. Bed in low position. Call hb light in reach. 12:01 Rasheeda Dickinson FNP-C is [facility]. kb 12:01 Wilfredo Gardner MD is Attending Physician. kb 12:24 No provider procedures requiring assistance completed. Patient did not have IV access hb during this emergency room visit. Administered Medications: No medications were administered Outcome: 12:12 Discharge ordered by . kb 12:24 Discharged to home ambulatory. hb 12:24 Condition: stable 12:24 Discharge instructions given to patient, Instructed on discharge instructions, follow up and referral plans. medication usage, Demonstrated understanding of instructions, follow-up care, medications. 12:24 Patient left the ED. hb Signatures: Rasheeda Dickinson FNP-C FNP-Vilma Carvajal ds1 Riddhi Bustos RN CAROLANN Remington Rizvi RN RN j
--- NOTE | 2021-03-14 12:13 | EDPHYS ---
Physician Documentation [facility] Name: Kyra Barboza Age: 50 yrs Sex: Female : 1970 Arrival Date: 03/14/2021 Time: 11:44 Bed 5 Private MD: ED Physician Wilfredo Gardner HPI: 03/14 15:56 This 50 yrs old Female presents to ER via Ambulatory with complaints of Sinus kb Congestion. 15:56 The patient or guardian reports cough, that is intermittent, described as mild. Onset: kb The symptoms/episode began/occurred 4 day(s) ago. Severity of symptoms: At their worst the symptoms were moderate, in the emergency department the symptoms are unchanged. Modifying factors: The symptoms are alleviated by nothing, the symptoms are aggravated by nothing. Associated signs and symptoms: Pertinent positives: rhinorrhea, sore throat, Pertinent negatives: chest pain, diarrhea, ear ache, fever, nausea, vomiting. The patient has not experienced similar symptoms in the past. The patient has not recently seen a physician. Pt reports sinus congestion, rhinorrhea, sore throat and cough that started 4 days ago. Denies fever.. 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 - Social history:: Smoking status: Patient denies any tobacco usage or history of. ROS: 15:55 Constitutional: Negative for fever, chills, and weight loss. kb 15:55 ENT: Positive for rhinorrhea, sinus congestion, sore throat. 15:55 Respiratory: Positive for cough, Negative for dyspnea on exertion, hemoptysis, orthopnea, pleurisy, shortness of breath, sputum production, wheezing. 15:55 All other systems are negative. Exam: 15:56 Constitutional: This is a well developed, well nourished patient who is awake, alert, kb and in no acute distress. Head/Face: Normocephalic, atraumatic. Cardiovascular: Regular rate and rhythm with a normal S1 and S2. No gallops, murmurs, or rubs. No pulse deficits. Respiratory: Respirations even and unlabored. No increased work of breathing, no retractions or nasal flaring. Abdomen/GI: Soft, non-tender. No distention Skin: Warm, dry with normal turgor. Normal color. MS/ Extremity: Pulses equal, no cyanosis. Neurovascular intact. Full, normal range of motion. Neuro: Awake and alert, GCS 15, oriented to person, place, time, and situation. Moves all extremities. Normal gait. Psych: Awake, alert, with orientation to person, place and time. Behavior, mood, and affect are within normal limits. 15:56 ENT: External ear(s): are unremarkable, Ear canal(s): are normal, TM's: are normal, Nose: is normal, Mouth: is normal, Posterior pharynx: is normal. Vital Signs: 11:48 BP 108 / 74; Pulse 82; Resp 17 S; Temp 97.9(TE); Pulse Ox 97% on R/A; Weight 62.6 kg jd3 (R); Height 5 ft. 0 in. (152.40 cm) (R); Pain 3/10; 11:48 Body Mass Index 26.95 (62.60 kg, 152.40 cm) jd3 MDM: 12:01 Patient medically screened. kb 15:55 Data reviewed: vital signs, nurses notes. Data interpreted: Pulse oximetry: on room air kb is 97 %. Interpretation: normal. Counseling: I had a detailed discussion with the patient and/or guardian regarding: the historical points, exam findings, and any diagnostic results supporting the discharge/admit diagnosis, the need for outpatient follow up, a family practitioner, to return to the emergency department if symptoms worsen or persist or if there are any questions or concerns that arise at home. Administered Medications: No medications were administered Disposition: 16:00 Co-signature as Attending Physician, Wilfredo Gardner MD. rn Disposition: 03/14/21 12:12 Discharged to Home. Impression: Acute sinusitis. - Condition is Stable. - Discharge Instructions: Sinusitis, Adult, [id number]. - Medication Reconciliation Form, Thank You Letter, Antibiotic Education, Prescription Opioid Use, Work release form form. - Follow up: Emergency Department; When: As needed; Reason: Worsening of condition. Follow up: Private Physician; When: 2 - 3 days; Reason: Recheck today's complaints, Continuance of care, Re-evaluation by your physician. Signatures: Rasheeda Dickinson, KIMANI-C HEALTHCARE TECHNICIAN-Wilfredo Heath MD MD rn Baxter, Heather, RN RN hb Davies, Jonathon, RN RN jd3 Corrections: (The following items were deleted from the chart) 12:24 12:12 03/14/2021 12:12 Discharged to Home. Impression: Acute sinusitis. Condition is hb Stable. Forms are Medication Reconciliation Form, Thank You Letter, Antibiotic Education, Prescription Opioid Use. Follow up: Emergency Department; When: As needed; Reason: Worsening of condition. Follow up: Private Physician; When: 2 - 3 days; Reason: Recheck today's complaints, Continuance of care, Re-evaluation by your physician. kb
== END 2021-03-14 12:24 | disposition home or self-care (01) ==
LOC: ER 11:42
DX: J01.90 Acute sinusitis, unspecified (principal); Z88.3 Allergy status to other anti-infective agents; Z88.5 Allergy status to narcotic agent
CPT/HCPCS: 99281

== ENCOUNTER 2021-09-29 07:43 | Emergency (ER) | payer OTHER ==
--- OUTSIDE RECORDS SUMMARY | 2021-09-29 07:46 | XMS REPORT | Continuity of Care Document ---
:1970 Author Organization [facility] Address [address] [place] [address] Dr. Keen [address] [place] [id number] Care Team Providers Name Role Phone Unavailable [...] c skin c skin [facility] eruption eruption [facility] Allergies, Adverse Reactions, Alerts This patient has no known allergies or adverse reactions. Medications This patient has no known medications. Procedures This patient has no known procedures. Encounters Start End Encounter Admission Attending Care Care Encounter Source Date/Time Date/Time Type Type Clinicians Facility Department ID 2019-12-21 2019-12-21 [facility] [id number] [facility] 13:17:00 13:17:00 [facility] Medicine Outpat[facility] ent Clinics 2019-12-10 2019-12-10 [facility] [id number] [facility] 08:00:00 08:00:00 [facility] Out[facility] Clin[facility] 2019-09-29 2019-09-29 [facility] [id number] [facility] 02:38:00 02:38:00 [facility] Out[facility] Clinics 2019-09-25 2019-09-25 [facility] [id number] [facility] 15:15:00 15:15:00 [facility] Clinics Results This patient has no known results.
[2021-09-29 08:03] LABS: Urine Blood 2+ (Negative); Urine Glucose Negative (Negative); Urine Protein Negative (Negative); Urine Specific Gravity 1.025 (1.005-1.030); Urine pH 5.5 (5.0-7.0)
--- NOTE | 2021-09-29 09:18 | EDPHYS ---
Physician Documentation [facility] Name: Kyra Barboza Age: 51 yrs Sex: Female : 1970 Arrival Date: 09/29/2021 Time: 07:44 Bed 23 Private MD: ED Physician Sania Rosa HPI: 09/29 09:16 This 51 yrs old Female presents to ER via Ambulatory with complaints of ma2 Urinary Problem. 09:16 Onset: The symptoms/episode began/occurred gradually, 1 day(s) ago. Associated signs ma2 and symptoms: Pertinent negatives: diarrhea, dysuria, nausea, vaginal bleeding, vaginal discharge. Severity of symptoms: At their worst the symptoms were very mild, in the emergency department the symptoms are unchanged. 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 - Social history:: Smoking status: Patient denies any tobacco usage or history of. Patient/guardian denies using alcohol, street drugs, The patient lives with family. - Family history:: not pertinent. ROS: 09:16 Positive for urinary symptoms. ma2 09:16 ENT: Negative for injury, pain, and discharge, Respiratory: Negative for shortness of breath, cough, wheezing, and pleuritic chest pain, Back: Negative for injury and pain. 09:16 All other systems are negative. Exam: 09:16 Constitutional: This is a well developed, well nourished patient who is awake, alert, ma2 and in no acute distress. Chest/axilla: Normal chest wall appearance and motion. Nontender with no deformity. No lesions are appreciated. Cardiovascular: Regular rate and rhythm with a normal S1 and S2. No gallops, murmurs, or rubs. Normal PMI, no JVD. No pulse deficits. Respiratory: Lungs have equal breath sounds bilaterally, clear to auscultation and percussion. No rales, rhonchi or wheezes noted. No increased work of breathing, no retractions or nasal flaring. Abdomen/GI: Soft, non-tender, with normal bowel sounds. No distension or tympany. No guarding or rebound. No evidence of tenderness throughout. Skin: Warm, dry with normal turgor. Normal color with no rashes, no lesions, and no evidence of cellulitis. MS/ Extremity: Pulses equal, no cyanosis. Neurovascular intact. Full, normal range of motion. Neuro: Awake and alert, GCS 15, oriented to person, place, time, and situation. Cranial nerves II-XII grossly intact. Motor strength 5/5 in all extremities. Sensory grossly intact. Cerebellar exam normal. Normal gait. Vital Signs: 07:56 BP 122 / 77; Pulse 79; Resp 17; Temp 97.3; Pulse Ox 99% ; Weight 65.77 kg; Height 5 ft. vg1 2 in. (157.48 cm); Pain 8/10; 09:33 BP 105 / 73; Pulse 74; Resp 16; Pulse Ox 97% ; bp 07:56 Body Mass Index 26.52 (65.77 kg, 157.48 cm) vg1 MDM: 08:01 Patient medically screened. ma2 09:16 Differential diagnosis: menorrhea, nonspecific abdominal pain, urinary tract infection, ma2 vaginosis. Data reviewed: vital signs, nurses notes, EMS record. Counseling: I had a detailed discussion with the patient and/or guardian regarding: the historical points, exam findings, and any diagnostic results supporting the discharge/admit diagnosis, the presence of at least one elevated blood pressure reading (>120/80) during this emergency department visit, the need for outpatient follow up. Response to treatment: the patient's symptoms have markedly improved after treatment. 09/29 08:03 Order name: Urine Dipstick-Ancillary; Complete Time: 09:15 EDMS 09/29 08:00 Order name: Urine Dipstick-Ancillary (obtain specimen); Complete Time: 08:03 ma2 Administered Medications: No medications were administered Disposition Summary: 09/29/21 09:17 Discharge Ordered Location: Home ma2 Condition: Stable ma2 Diagnosis - UTI/ Urinary tract infection, site not specified ma2 Followup: ma2 - With: Private Physician - When: Tomorrow - Reason: Continuance of care Discharge Instructions: - Discharge Summary Sheet ma2 - Dysuria ma2 Forms: - Medication Reconciliation Form ma2 - Thank You Letter ma2 - Antibiotic Education ma2 - Prescription Opioid Use ma2 Prescriptions: - Keflex 750 mg Oral capsule - take 2 capsule by ORAL route 2 times per day for 7 days; 14 capsule; Refills: ma2 0, Product Selection Permitted Signatures: Dispatcher [employer] Sania Trinh MD MD ma2 Megan Cabral RN RN vg1
--- NOTE | 2021-09-29 09:18 | ER ---
Nurse's Notes [facility] Name: Kyra Barboza Age: 51 yrs Sex: Female : 1970 Arrival Date: 09/29/2021 Time: 07:44 Bed 23 Private MD: Diagnosis: UTI/ Urinary tract infection, site not specified Presentation: 09/29 07:56 Chief complaint: Patient states: Burning upon urination x 1 week, denies N/V, states vg1 lower back pain. Coronavirus screen: Vaccine status: Patient reports receiving the 2nd dose of the covid vaccine. Client denies travel out of the [place] in the last 14 days. Ebola Screen: Patient negative for fever greater than or equal to 101.5 degrees Fahrenheit, and additional compatible Ebola Virus Disease symptoms. Initial Sepsis Screen: Does the patient meet any 2 criteria? No. Patient's initial sepsis screen is negative. Does the patient have a suspected source of infection? No. Patient's initial sepsis screen is negative. Risk Assessment: Do you want to hurt yourself or someone else? Patient reports no desire to harm self or others. Onset of symptoms was September 22, 2021. 07:56 Method Of Arrival: Ambulatory vg1 07:56 Acuity: SATYA 4 vg1 Triage Assessment: 07:57 General: Appears in no apparent distress. comfortable, Behavior is calm, cooperative. vg1 Pain: Complains of pain in lower back. : Reports burning with urination, pain in lower back with urination. 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 - Social history:: Smoking status: Patient denies any tobacco usage or history of. Patient/guardian denies using alcohol, street drugs, The patient lives with family. - Family history:: not pertinent. Screenin:00 Abuse screen: Denies threats or abuse. Denies injuries from another. Nutritional bp screening: No deficits noted. Tuberculosis screening: No symptoms or risk factors identified. Fall Risk None identified. Assessment: 08:00 General: SEE TRIAGE NOTE. bp 09:33 Reassessment: PT D/C HOME AMBULATORY, DX WITH UTI. bp Vital Signs: 07:56 BP 122 / 77; Pulse 79; Resp 17; Temp 97.3; Pulse Ox 99% ; Weight 65.77 kg; Height 5 ft. vg1 2 in. (157.48 cm); Pain 8/10; 09:33 BP 105 / 73; Pulse 74; Resp 16; Pulse Ox 97% ; bp 07:56 Body Mass Index 26.52 (65.77 kg, 157.48 cm) vg1 ED Course: 07:44 Patient arrived in ED. am2 07:57 London Kenney, RN is Primary Nurse. bp 07:57 Triage completed. vg1 07:57 Arm band placed on. vg1 07:59 Sania Rosa MD is Attending Physician. ma2 08:00 Patient has correct armband on for positive identification. Bed in low position. Call bp light in reach. Side rails up X2. 09:34 No provider procedures requiring assistance completed. Patient did not have IV access bp during this emergency room visit. Administered Medications: No medications were administered Outcome: 09:17 Discharge ordered by . ma2 09:34 Discharged to home ambulatory. bp 09:34 Condition: stable 09:34 Discharge instructions given to patient, Instructed on discharge instructions, follow up and referral plans. medication usage, Demonstrated understanding of instructions, follow-up care, medications, Prescriptions given X 1. 09:35 Patient left the ED. bp Signatures: Rama Zepeda am2 London Kenney, RN RN Sania Rosa MD MD akMegan Gallego RN RN 1
[2021-09-29 09:42] VITALS: TEMP 97.3
[2021-09-29 09:43] VITALS: BP 105/73; O2SAT 97
== END 2021-09-29 09:35 | disposition home or self-care (01) ==
LOC: ER 07:43
DX: N39.0 Urinary tract infection, site not specified (principal)
CPT/HCPCS: 81003; 99282

== ENCOUNTER 2021-10-31 12:19 | Emergency (ER) | payer OTHER ==
--- OUTSIDE RECORDS SUMMARY | 2021-10-31 12:22 | XMS REPORT | Continuity of Care Document ---
:1970 Author Organization [facility] Address [address] [place] [address] Dr. [address] [place] [id number] Care Team Providers Name Role Phone AbaTeresa Attending Clinician Unavailable Problems Condition Condition Condition Status Onset Resolution Last Treating Co mments Source Name Details Category Date Date Treatment Clinician Date Renal cyst Renal cyst Problem Active [facility] Rash and Rash and Problem Active [facility] Sadie kes - c skin c skin [facility] eruption eruption l Outpati ent Clinics Allergies, Adverse Reactions, Alerts This patient has no known allergies or adverse reactions. Medications This patient has no known medications. Procedures This patient has no known procedures. Encounters Start End Encounter Admission Attending Care Care Encounter Source Date/Time Date/Time Type Type Clinicians Facility Department ID 2021-10-12 Outpatient TOSHIA Troncoso [facility] [id number] 11:33:[facility] Teresa [id number] [facility] 2021-10-12 Outpatient TOSHIA Troncoso [facility] [id number] [facility] 11:15:13 Teresa [id number] [facility] 2021-10-12 Outpatient TOSHIA Troncoso [facility] [id number] [facility] 10:59:26 Teresa [id number] [facility] 2019-12-21 2019-12-21 [facility] [id number] 13:17:00 13:17:00 [facility] Medicine Outpati ent Clinics 2019-12-10 2019-12-10 [facility] [id number] [facility] 08:00:00 08:00:00 [facility] Medicine Outpati ent Clinics 2019-09-29 2019-09-29 Outpatient Yasmeen Vazquez [id number] 02:38:00 02:38:00 [facility] 2019-09-25 2019-09-25 Outpatient Yasmeen Vazquez [id number] 15:15:00 15:15:00 [facility] ent Clinics Results This patient has no known results.
[2021-10-31 13:31] LABS: Urine Blood Trace-intact (Negative); Urine Glucose Negative (Negative); Urine Protein Negative (Negative)
--- NOTE | 2021-10-31 14:26 | RAD REPORT ---
EXAM DESCRIPTION: RAD - Chest Single View - 10/31/2021 2:20 pm CLINICAL HISTORY: COUGH Chest pain. COMPARISON: Chest Single View dated 12/26/2020 FINDINGS: Portable technique limits examination quality. Mild interstitial prominence is seen suggesting a viral infection. The heart is normal in size. No di splaced fractures.
[2021-10-31 15:56] LABS: SARS-COV-2 RT PCR POSITIVE (NEGATIVE)
--- NOTE | 2021-10-31 16:09 | EDPHYS ---
Physician Documentation [facility] Name: Kyra Barboza Age: 51 yrs Sex: Female : 1970 Arrival Date: 10/31/2021 Time: 12:21 Bed 28 Private MD: ED Physician Wilfredo Gardner HPI: 10/31 13:53 This 51 yrs old Female presents to ER via Ambulatory with complaints of Cough. rn 13:53 This 51 yrs old Female presents to ER via Ambulatory with complaints of Cough. rn 13:53 The patient or guardian reports cough, described as mild, with no sputum. Onset: The rn symptoms/episode began/occurred 1 week(s) ago. Severity of symptoms: At their worst the symptoms were mild, in the emergency department the symptoms have improved. Modifying factors: The symptoms are alleviated by nothing, the symptoms are aggravated by nothing. Associated signs and symptoms: Pertinent positives: Congestion, Pertinent negatives: chest pain, diarrhea, vomiting. The patient has not experienced similar symptoms in the past. The patient has not recently seen a physician. Patient reports got sick 1 week ago, fever for 2 days with congestion. Feels like she got better but then started coughing 2 days ago. Denies shortness of breath. Reports feels overall better. Did not see anybody nor did she get tested for anything.. 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 - Social history:: Smoking status: Patient denies any tobacco usage or history of. - Family history:: not pertinent. - Hospitalizations: : No recent hospitalization is reported. ROS: 13:53 Constitutional: Positive for fever Eyes: Negative for injury, pain, redness, and quality improvement coordinator (rn), ENT: Negative for injury, pain, and discharge, Neck: Negative for injury, pain, and swelling, Cardiovascular: Negative for chest pain, palpitations, and edema, Respiratory: Negative for shortness of breath, wheezing, and pleuritic chest pain, Abdomen/GI: Negative for abdominal pain, nausea, vomiting, diarrhea, and constipation, Back: Negative for injury and pain, : Negative for injury, bleeding, discharge, and swelling, MS/Extremity: Negative for injury and deformity, Skin: Negative for injury, rash, and discoloration, Neuro: Negative for headache, weakness, numbness, tingling, and seizure. Exam: 13:53 Constitutional: This is a well developed, well nourished patient who is awake, alert, rn and in no acute distress. Head/Face: Normocephalic, atraumatic. Eyes: Periorbital areas with no swelling, redness, or edema. Cardiovascular: Regular rate and rhythm. No pulse deficits. Respiratory: Speaking full sentences, unlabored. No increased work of breathing, no retractions or nasal flaring. Abdomen/GI: Soft, non-tender Skin: Warm, dry MS/ Extremity: Pulses equal, no cyanosis Neuro: Awake and alert, GCS 15 Vital Signs: 12:48 BP 131 / 90; Pulse 72; Resp 17; Temp 97.5; Pulse Ox 100% ; Weight 68.04 kg; Height 5 ll1 ft. 0 in. (152.40 cm); Pain 2/10; 13:35 BP 122 / 83; Pulse 90; Resp 18; Pulse Ox 100% ; ss7 14:30 BP 106 / 66; Pulse 66; Resp 18; Pulse Ox 97% ; ss7 15:53 BP 107 / 75; Pulse 94; Resp 18; Pulse Ox 98% on R/A; lr4 16:31 BP 107 / 80; Pulse 71; Resp 18; Pulse Ox 99% on R/A; lr4 12:48 Body Mass Index 29.29 (68.04 kg, 152.40 cm) ll1 MDM: 13:24 Patient medically screened. rn 16:07 Differential Diagnosis: Bronchitis Influenza Upper Respiratory Infection Viral Syndrome rn Pneumonia. Data reviewed: vital signs, nurses notes, lab test result(s), radiologic studies, plain films, and as a result, I will discharge patient. Counseling: I had a detailed discussion with the patient and/or guardian regarding: the historical points, exam findings, and any diagnostic results supporting the discharge/admit diagnosis, lab results, radiology results, the need for outpatient follow up, to return to the emergency department if symptoms worsen or persist or if there are any questions or concerns that arise at home. Response to treatment: the patient's symptoms have markedly improved after treatment, and as a result, I will discharge patient. Special discussion: I discussed with the patient/guardian in detail that at this point there is no indication for admission to the hospital. It is understood, however, that if the symptoms persist or worsen the patient needs to return immediately for re-evaluation. ED course: NO oxygen requirement, COVID +, will dc home.. 10/31 13:30 Order name: Urine Dipstick-Ancillary; Complete Time: 14:19 EDMS 10/31 13:31 Order name: Urine --Ancillary (enter results) bd 10/31 13:31 Order name: Urine --Ancillary; Complete Time: 14:19 EDMS 10/31 13:48 Order name: COVID-19/FLU A+B (Document "Date of Onset" if Symptomatic); Complete Time: rn 16:00 10/31 13:48 Order name: XRAY Chest (1 view); Complete Time: 14:39 rn Administered Medications: No medications were administered Disposition Summary: 10/31/21 16:08 Discharge Ordered Location: Home rn Problem: new rn Symptoms: have improved rn Condition: Stable rn Diagnosis - SARS-associated coronavirus as the cause of diseases classified elsewhere rn Followup: rn - With: Private Physician - When: As needed - Reason: Recheck today's complaints, Re-evaluation by your physician Discharge Instructions: - Discharge Summary Sheet rn - COVID-19 rn - 10 Things You Can Do to Manage Your COVID-19 Symptoms at Home - [facility] rn - Viral Illness, Adult rn Forms: - Medication Reconciliation Form rn - Thank You Letter rn - Antibiotic rn stars - Prescription Opioid Use rn Signatures: Dispatcher [employer] Wilfredo Arevalo MD MD rn Lewis, Lynsay RN RN ll1
--- NOTE | 2021-10-31 16:09 | ER ---
Nurse's Notes [facility] Name: Kyra Barboza Age: 51 yrs Sex: Female : 1970 Arrival Date: 10/31/2021 Time: 12:21 Bed 28 Private MD: Diagnosis: SARS-associated coronavirus as the cause of diseases classified elsewhere Presentation: 10/31 12:48 Chief complaint: Patient states: Fever, body aches since Sunday. Cough for 3 days. ll1 Coronavirus screen: Vaccine status: Patient reports receiving the 2nd dose of the covid vaccine. Client denies travel out of the [place] in the last 14 days. cough unrelated to allergies, fatigue, fever, muscle pain, Client presents with at least one sign or symptom that may indicate coronavirus-19. Standard/surgical mask placed on the client. Ebola Screen: Patient denies travel to an Ebola-affected area in the 21 days before illness onset. Initial Sepsis Screen: Does the patient meet any 2 criteria? No. Patient's initial sepsis screen is negative. Does the patient have a suspected source of infection? Yes: Productive cough/pneumonia. Risk Assessment: Do you want to hurt yourself or someone else? Patient reports no desire to harm self or others. Onset of symptoms was October 25, 2021. 12:48 Method Of Arrival: Ambulatory ll1 12:48 Acuity: SATYA 3 ll1 Triage Assessment: 14:07 General: Appears in no apparent distress. Behavior is calm, cooperative. Pain: Denies ss7 pain. EENT: Reports nasal congestion nasal discharge. Neuro: No deficits noted. Cardiovascular: No deficits noted. Respiratory: No deficits noted. Respiratory: Reports cough that is non-productive. GI: No deficits noted. : No deficits noted. Derm: No deficits noted. Musculoskeletal: Reports pain in back. 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 - Social history:: Smoking status: Patient denies any tobacco usage or history of. - Family history:: not pertinent. - Hospitalizations: : No recent hospitalization is reported. Screenin:06 Abuse screen: Denies threats or abuse. Nutritional screening: No deficits noted. ss7 Tuberculosis screening: No symptoms or risk factors identified. Fall Risk None identified. Assessment: 14:08 General: Appears in no apparent distress. see triage. ss7 16:31 Reassessment: Pt departed ed ambulatory with all personal effects, pt in nad, vss lr4 Patient states feeling better. Vital Signs: 12:48 BP 131 / 90; Pulse 72; Resp 17; Temp 97.5; Pulse Ox 100% ; Weight 68.04 kg; Height 5 ll1 ft. 0 in. (152.40 cm); Pain 2/10; 13:35 BP 122 / 83; Pulse 90; Resp 18; Pulse Ox 100% ; ss7 14:30 BP 106 / 66; Pulse 66; Resp 18; Pulse Ox 97% ; ss7 15:53 BP 107 / 75; Pulse 94; Resp 18; Pulse Ox 98% on R/A; lr4 16:31 BP 107 / 80; Pulse 71; Resp 18; Pulse Ox 99% on R/A; lr4 12:48 Body Mass Index 29.29 (68.04 kg, 152.40 cm) ll1 ED Course: 12:21 Patient arrived in ED. as 12:49 Triage completed. ll1 12:49 Arm band placed on. ll1 13:24 Wilfredo Gardner MD is Attending Physician. rn 13:35 Urine --Ancillary (enter results) Sent. ss7 14:06 Patient has correct armband on for positive identification. Placed in gown. Bed in low ss7 position. Call light in reach. 14:06 COVID-19/FLU A+B (Document "Date of Onset" if Symptomatic) Sent. ss7 14:06 No provider procedures requiring assistance completed. Inserted saline lock: 20 gauge ss7 in left antecubital area, using aseptic technique. Blood collected. 14:20 XRAY Chest (1 view) In Process Unspecified. EDMS 16:20 IV discontinued. lr4 Administered Medications: No medications were administered Outcome: 16:08 Discharge ordered by . rn 16:19 Discharged to home ambulatory. lr4 16:19 Condition: good 16:19 Discharge instructions given to patient. 16:31 Patient left the ED. lr4 Signatures: Dispatcher [employer] Hui Morales Roman, MD MD rn Jose Angel, CAROLANN Mckay RN ll1 Teri Banda RN RN ss7 Angela Shaver RN RN lr4
[2021-10-31 18:26] VITALS: BP 107/80; O2SAT 99
[2021-10-31 18:31] VITALS: TEMP 97.5
== END 2021-10-31 16:31 | disposition home or self-care (01) ==
LOC: ER 12:19
DX: U07.1 COVID-19 (principal); Z88.3 Allergy status to other anti-infective agents; Z88.5 Allergy status to narcotic agent
CPT/HCPCS: 81025; 81003; 0240U; 71045; 99284

== ENCOUNTER 2022-07-21 08:49 | Emergency (ER) | payer OTHER ==
--- OUTSIDE RECORDS SUMMARY | 2022-07-21 08:52 | XMS REPORT | Continuity of Care Document ---
:1970 Author Organization [facility] Address [facility] [place] [address] Care Team Providers Name Role Phone AbaTeresa Attending Clinician Unavailable Problems Condition Condition Condition Status Onset Resolution Last Treating Co mments Source Name Details Category Date Date Treatment Clinician Date Renal cyst Renal cyst Problem Active [facility] Rash and Rash and Problem Active Commo n nonspecifi nonspecifi Sp talib c skin c skin - [facility] Allergies, Adverse Reactions, Alerts This patient has no known allergies or adverse reactions. Medications This patient has no known medications. Procedures This patient has no known procedures. Encounters Start End Encounter Admission Attending Care Care Encounter Source Date/Time Date/Time Type Type Clinicians Facility Department ID [facility]-10[facility] [id number] 11:[facility]09 Teresa [id number] [facility] 2021-10-[address] [facility] [id number] 11:15:13 Teresa [id number] [facility] 2021-10-12 Outpatient [facility] [id number] Common 10:59:26 Teresa [id number] [facility] 2019-12-21 2019-12-21 [facility] [id number] Common 13:17:00 13:17:00 [facility] 2019-12-10 2019-12-10 [facility] [id number] Common 08:00:00 08:00:00 [facility] 2019-09-29 2019-09-29 [facility] [id number] Common 02:38:00 02:38:[address] [facility] [address] [facility] 2019-09-25 2019-09-25 Outpatient Londonrome Taylor [id number] Common 15:15:00 15:15:00 [facility] Results This patient has no known results.
[2022-07-21 09:08] LABS: Urine Blood 2+ (Negative); Urine Glucose Negative (Negative); Urine Protein Negative (Negative); Urine Specific Gravity 1.025 (1.005-1.030)
[2022-07-21 09:31] LABS: Urine Mucus Slight /HPF (None Seen)
--- NOTE | 2022-07-21 09:38 | ER ---
Nurse's Notes [facility] Name: Kyra Barboza Age: 52 yrs Sex: Female : 1970 Arrival Date: 07/21/2022 Time: 08:52 Bed 19 Private MD: Diagnosis: UTI/ Urinary tract infection, site not specified;Hematuria, unspecified Presentation: 07/21 09:00 Chief complaint: Patient states: mid back pain that radiates to the lower back x 1 vg1 months, denies ABD pain, burning upon urination, or frequency. Coronavirus screen: Vaccine status: Patient reports receiving the 2nd dose of the covid vaccine. Client denies travel out of the [place] in the last 14 days. Ebola Screen: Patient negative for fever greater than or equal to 101.5 degrees Fahrenheit, and additional compatible Ebola Virus Disease symptoms Patient denies exposure to infectious person. Initial Sepsis Screen: Does the patient meet any 2 criteria? No. Patient's initial sepsis screen is negative. Does the patient have a suspected source of infection? No. Patient's initial sepsis screen is negative. Risk Assessment: Do you want to hurt yourself or someone else? Patient reports no desire to harm self or others. Onset of symptoms was June 20, 2022. 09:00 Method Of Arrival: Ambulatory vg1 09:00 Acuity: SATYA 3 vg1 Triage Assessment: 09:01 General: Appears in no apparent distress. comfortable, Behavior is calm, cooperative. vg1 Pain: Complains of pain in back. : Urine is cloudy, Denies burning with urination, inability to void, urinary frequency. Musculoskeletal: Circulation, motion, and sensation intact. Historical: - Allergies: 09:01 Codeine; vg1 09:01 Erythromycin; vg1 09:01 narcotic pain meds; vg1 - Home Meds: 09:01 None [Active]; vg1 - PMHx: 09:01 Hernia; UTI; vg1 - PSHx: 09:01 section; vg1 - Immunization history:: Client reports receiving the 2nd dose of the Covid vaccine. - Social history:: Smoking status: Patient denies any tobacco usage or history of. - Family history:: not pertinent. - Hospitalizations: : No recent hospitalization is reported. Screenin:02 Abuse screen: Denies threats or abuse. Nutritional screening: No deficits noted. vg1 Tuberculosis screening: No symptoms or risk factors identified. Fall Risk None identified. Assessment: 09:07 : Reports burning sensation in right flank. She reports she feels like this when she mb8 gets a UTI. Denies burning with urination and denies frequency. Denies burning with urination, cramping urinary frequency, urgency. Vital Signs: 09:00 BP 132 / 82; Pulse 74; Resp 14; Temp 98.2; Pulse Ox 99% ; Weight 68.04 kg; Height 5 ft. vg1 0 in. (152.40 cm); Pain 0/10; 09:00 Body Mass Index 29.29 (68.04 kg, 152.40 cm) vg1 ED Course: 08:52 Patient arrived in ED. mr 08:52 Wilfredo Gardner MD is Attending Physician. rn 09:01 Triage completed. vg1 09:01 Arm band placed on. vg1 09:02 Shad Turcios, RN is Primary Nurse. mb8 09:02 Patient has correct armband on for positive identification. Bed in low position. Call [facility] light in reach. 09:08 No provider procedures requiring assistance completed. mb8 09:59 Patient did not have IV access during this emergency room visit. mb8 Administered Medications: No medications were administered Medication: 09:03 VIS not applicable for this client. vg1 Outcome: 09:37 Discharge ordered by . rn 09:45 Discharged to home ambulatory. mb8 09:45 Condition: stable 09:45 Discharge instructions given to patient, Instructed on discharge instructions, follow up and referral plans. medication usage, Demonstrated understanding of instructions, follow-up care, medications, Prescriptions given X 1. 09:59 Patient left the ED. mb8 Signatures: Barone Josefa ngo Wilfredo Gardner MD MD rn Garcia, Victoria RN RN vg1 Shad Turcios, CAROLANN RN mb8
--- NOTE | 2022-07-21 09:38 | EDPHYS ---
Physician Documentation [facility] Name: Kyra Barboza Age: 52 yrs Sex: Female : 1970 Arrival Date: 07/21/2022 Time: 08:52 Bed 19 Private MD: ED Physician Wilfredo Gardner HPI: 07/21 08:56 This 52 yrs old Female presents to ER via Unassigned with complaints of low rn back pain. 08:56 The patient presents with pain that is acute, with no known mechanism of injury. The rn symptoms are located in the low back. The pain does not radiate. Onset: The symptoms/episode began/occurred 1 month(s) ago. Modifying factors: The patient symptoms are alleviated by nothing, the patient symptoms are aggravated by nothing. Associated signs and symptoms: Pertinent positives: none Pertinent negatives: abdominal pain, constipation, dysuria, fever, hematuria, incontinence, nausea, numbness, tingling, urinary retention, vomiting, weakness. Severity of symptoms: At their worst the symptoms were mild, in the emergency department the symptoms are unchanged. The patient has experienced similar episodes in the past. The patient has not recently seen a physician. Pt reports low back burning, has hx of recurrent UTI and stats usually has low back pain with UTI. NO fever. NO dysuria. No abd pain. NO injury. . Historical: - Allergies: 09:01 Codeine; vg1 09:01 Erythromycin; vg1 09:01 narcotic pain meds; vg1 - Home Meds: 09:01 None [Active]; vg1 - PMHx: 09:01 Hernia; UTI; vg1 - PSHx: 09:01 section; vg1 - Immunization history:: Client reports receiving the 2nd dose of the Covid vaccine. - Social history:: Smoking status: Patient denies any tobacco usage or history of. - Family history:: not pertinent. - Hospitalizations: : No recent hospitalization is reported. ROS: 08:56 Constitutional: Negative for fever, chills, and weight loss, Eyes: Negative for injury, rn pain, redness, and discharge, Neck: Negative for injury, pain, and swelling, Cardiovascular: Negative for chest pain, palpitations, and edema, Respiratory: Negative for shortness of breath, cough, wheezing, and pleuritic chest pain, Abdomen/GI: Negative for abdominal pain, nausea, vomiting, diarrhea, and constipation, Back: + low back pain MS/Extremity: Negative for injury and deformity, Skin: Negative for injury, rash, and discoloration, Neuro: Negative for headache, weakness, numbness, tingling, and seizure. Exam: 08:56 Constitutional: This is a well developed, well nourished patient who is awake, alert, bag turner to triage without difficulty. Abdomen/GI: Soft, non-tender Back: No spinal tenderness. No costovertebral tenderness. Full range of motion. Vital Signs: 09:00 BP 132 / 82; Pulse 74; Resp 14; Temp 98.2; Pulse Ox 99% ; Weight 68.04 kg; Height 5 ft. vg1 0 in. (152.40 cm); Pain 0/10; 09:00 Body Mass Index 29.29 (68.04 kg, 152.40 cm) vg1 MDM: 08:52 Patient medically screened. rn 09:36 Differential diagnosis: arthritis, strain, sciatica, Herniated disc UTI. Data reviewed: rn vital signs, nurses notes, lab test result(s), and as a result, I will discharge patient. Counseling: I had a detailed discussion with the patient and/or guardian regarding: the historical points, exam findings, and any diagnostic results supporting the discharge/admit diagnosis, lab results, the need for outpatient follow up, to return to the emergency department if symptoms worsen or persist or if there are any questions or concerns that arise at home. Special discussion: I discussed with the patient/guardian in detail that at this point there is no indication for admission to the hospital. It is understood, however, that if the symptoms persist or worsen the patient needs to return immediately for re-evaluation. 07/21 08:56 Order name: Urine Culture rn 07/21 08:56 Order name: Urine Microscopic Only; Complete Time: 09:36 rn 07/21 08:56 Order name: Urine Dipstick-Ancillary (obtain specimen); Complete Time: 09:07 rn 07/21 09:08 Order name: Urine Dipstick-Ancillary; Complete Time: 09:36 EDMS Administered Medications: No medications were administered Disposition Summary: 07/21/22 09:37 Discharge Ordered Location: Home rn Problem: new rn Symptoms: are unchanged rn Condition: Stable rn Diagnosis - UTI/ Urinary tract infection, site not specified rn - Hematuria, unspecified rn Followup: rn - With: Private Physician - When: As needed - Reason: Recheck today's complaints, Re-evaluation by your physician Discharge Instructions: - Discharge Summary Sheet rn - Hematuria, Adult rn - Urinary Tract Infection, Adult rn Forms: - Medication Reconciliation Form rn - Thank You Letter rn - Antibiotic staff development coordinator rn - Prescription Opioid Use rn Prescriptions: - Cipro 500 mg Oral Tablet - take 1 tablet by ORAL route every 12 hours for 7 days; 14 tablet; Refills: 0, rn Product Selection Permitted Signatures: Dispatcher [employer] EDWilfredo Arevalo MD MD rn Misha, Megan RN RN vg1
[2022-07-21 10:06] VITALS: BP 132/82; TEMP 98.2; O2SAT 99
== END 2022-07-21 09:59 | disposition home or self-care (01) ==
LOC: ER 08:49
DX: N39.0 Urinary tract infection, site not specified (principal); R31.9 Hematuria, unspecified
CPT/HCPCS: 81003; 81015; 87086; 87088; 99282

== ENCOUNTER 2023-02-04 07:36 | Emergency (ER) | payer OTHER ==
--- OUTSIDE RECORDS SUMMARY | 2023-02-04 07:39 | XMS REPORT | Continuity of Care Document ---
:1970 Author Organization [facility] Address [address] [facility] [address] [place] [id number] Care Team Providers Name Role Phone Teresa Troncoso Attending Clinician Unavailable Problems Condition Condition Condition Status Onset Resolution Last Treating Co mments Source Name Details Category Date Date Treatment Clinician Date Renal cyst Renal cyst Problem Active C ommon [facility] Rash and Rash and Problem Active Commo n nonspecifi nonspecifi Sp talib c skin c skin - [facility] eruption eruption [facility] Allergies, Adverse Reactions, Alerts This patient has no known allergies or adverse reactions. Medications This patient has no known medications. Procedures This patient has no known procedures. Encounters Start End Encounter Admission Attending Care Care Encounter Source Date/Time Date/Time Type Type Clinicians Facility Department ID 2021-10-[address] [facility] [id number] Common 11:33:09 Teresa [id number] [facility] 2021-10-[address] [facility] [id number] Common 11:15:13 Teresa [id number] [facility] 2021-10-12 Outpatient [facility] [id number] Common 10:59:26 Teresa [id number] [facility] 2019-12-21 2019-12-21 [facility] [id number] Common 13:17:00 13:17:00 [facility] 2019-12-10 2019-12-10 [facility] [id number] Common 08:00:00 08:00:00 [facility] it [facility] 2019-09-29 2019-09-29 [facility] [id number] Common 02:38:00 02:38:00 [facility] it [address] [facility] 2019-09-25 2019-09-25 Outpatient [facility] [id number] Common 15:15:00 15:15:00 [facility] it [facility] Results This patient has no known results.
[2023-02-04 08:14] LABS: Urine Bacteria None Seen /HPF (<20); Urine Bilirubin NEGATIVE (Negative); Urine Blood 2+ (Negative); Urine Clarity Clear (Clear); Urine Color Light-Yellow (Yellow); Urine Glucose NEGATIVE (Negative); Urine Mucus Slight /HPF (None Seen); Urine Protein TRACE (Negative); Urine Urobilinogen Normal (Normal)
--- NOTE | 2023-02-04 08:19 | EDPHYS ---
Physician Documentation [facility] Name: Kyra Barboza Age: 52 yrs Sex: Female : 1970 Arrival Date: 02/04/2023 Time: 07:36 Bed 19 Private MD: ED Physician Reynold Voss HPI: 02/04 08:00 This 52 yrs old Female presents to ER via Ambulatory with complaints of Pelvic rt Pain. 08:00 Patient presents to the ED with symptoms consistent with prior UTIs. She reports of rt dysuria, burning with urination as well as a bilateral low back pain, no flank pain. Denies other acute complaints at this time. Symptoms have been present for about a week. Symptoms are mild in severity, no other aggravating or alleviating factors.. Historical: - Allergies: 07:47 Codeine; vg1 07:47 Erythromycin; vg1 07:47 narcotic pain meds; vg1 - PMHx: 07:47 Hernia; UTI; vg1 - PSHx: 07:47 section; vg1 - Immunization history:: Client reports receiving the 2nd dose of the Covid vaccine. - Social history:: Smoking status: Patient denies any tobacco usage or history of. ROS: 08:00 Constitutional: Negative for fever, chills, and weight loss, Cardiovascular: Negative rt for chest pain, palpitations, and edema, Respiratory: Negative for shortness of breath, cough, wheezing, and pleuritic chest pain, Abdomen/GI: Negative for abdominal pain, nausea, vomiting, diarrhea, and constipation, Skin: Negative for injury, rash, and discoloration, Neuro: Negative for headache, weakness, numbness, tingling, and seizure, Psych: Negative for depression, anxiety, suicide ideation, homicidal ideation, and hallucinations. 08:00 Back: Positive for pain at rest, Negative for flank pain. 08:00 : Positive for burning with urination, Negative for hematuria. Exam: 08:00 Constitutional: This is a well developed, well nourished patient who is awake, alert, rt and in no acute distress. Head/Face: Normocephalic, atraumatic. Chest/axilla: Normal chest wall appearance and motion. Nontender with no deformity. No lesions are appreciated. Cardiovascular: Regular rate and rhythm with a normal S1 and S2. No gallops, murmurs, or rubs. Normal PMI, no JVD. No pulse deficits. Respiratory: Lungs have equal breath sounds bilaterally, clear to auscultation and percussion. No rales, rhonchi or wheezes noted. No increased work of breathing, no retractions or nasal flaring. Abdomen/GI: Soft, non-tender, with normal bowel sounds. No distension or tympany. No guarding or rebound. No evidence of tenderness throughout. Skin: Warm, dry with normal turgor. Normal color with no rashes, no lesions, and no evidence of cellulitis. MS/ Extremity: Pulses equal, no cyanosis. Neurovascular intact. Full, normal range of motion. Neuro: Awake and alert, GCS 15, oriented to person, place, time, and situation. Cranial nerves II-XII grossly intact. Motor strength 5/5 in all extremities. Sensory grossly intact. Cerebellar exam normal. Normal gait. Vital Signs: 07:44 BP 114 / 80; Pulse 65; Resp 14; Temp 98.6(O); Pulse Ox 99% on R/A; Weight 68.04 kg; vg1 Height 5 ft. 2 in. ; Pain 2/10; 07:44 Body Mass Index 27.44 (68.04 kg, 157.48 cm) vg1 07:44 Pain Scale: Adult vg1 MDM: 07:48 Patient medically screened. rt 08:19 Differential diagnosis: UTI, pyelo-, dysuria. Data reviewed: vital signs, nurses notes, rt lab test result(s). Test considered but Not performed: CT: Stable vital signs, no flank tenderness, CT scan not indicated. Counseling: I had a detailed discussion with the patient and/or guardian regarding: the historical points, exam findings, and any diagnostic results supporting the discharge/admit diagnosis, the presence of at least one elevated blood pressure reading (>120/80) during this emergency department visit, the need for outpatient follow up. 02/04 07:53 Order name: CHAPARRITA; Complete Time: 08:15 rt Administered Medications: No medications were administered Disposition Summary: 02/04/23 08:18 Discharge Ordered Location: Home rt Problem: new rt Symptoms: are unchanged rt Condition: Stable rt Diagnosis - UTI/ Urinary tract infection, site not specified rt Followup: rt - With: Private Physician - When: 2 - 3 days - Reason: Discharge Instructions: - Discharge Summary Sheet rt - Dysuria rt Forms: - Work release form vg1 - Medication Reconciliation Form rt - Thank You Letter rt - Antibiotic Education rt - Prescription Opioid Use rt Prescriptions: - Macrobid 100 mg Oral Capsule - take 1 capsule by ORAL route every 12 hours for 7 days; 14 capsule; Refills: 0, rt Product Selection Permitted Signatures: Dispatcher [employer] Megan Guillaume RN RN vg1 Reynold Voss MD MD rt
--- NOTE | 2023-02-04 08:19 | ER ---
Nurse's Notes [facility] Name: Kyra Barboza Age: 52 yrs Sex: Female : 1970 Arrival Date: 02/04/2023 Time: 07:36 Bed 19 Private MD: Diagnosis: UTI/ Urinary tract infection, site not specified Presentation: 02/04 07:44 Chief complaint: Patient states: "I have a UTI, I know when Im getting them, my lower vg1 back hurts" stated s/s of UTI x 2 days. Denies burning upon urination or N/V. Coronavirus screen: Vaccine status: Patient reports receiving the 2nd dose of the covid vaccine. Client denies travel out of the [place] in the last 14 days. Ebola Screen: Patient negative for fever greater than or equal to 101.5 degrees Fahrenheit, and additional compatible Ebola Virus Disease symptoms Patient denies exposure to infectious person. Patient denies travel to an Ebola-affected area in the 21 days before illness onset. Initial Sepsis Screen: Does the patient meet any 2 criteria? No. Patient's initial sepsis screen is negative. Does the patient have a suspected source of infection? No. Patient's initial sepsis screen is negative. Risk Assessment: Do you want to hurt yourself or someone else? Patient reports no desire to harm self or others. Onset of symptoms was February 02, 2023. 07:44 Method Of Arrival: Ambulatory vg1 07:44 Acuity: SATYA 3 vg1 Triage Assessment: 07:47 General: Appears in no apparent distress. comfortable, Behavior is calm, cooperative. vg1 Pain: Complains of pain in back Pain currently is 2 out of 10 on a pain scale. Quality of pain is described as burning, Pain began 2-3 days ago. Neuro: Level of Consciousness is awake, alert, obeys commands, Oriented to person, place, time, situation. Cardiovascular: Patient's skin is warm and dry. Respiratory: Airway is patent Respiratory effort is even, unlabored. GI: Patient currently denies nausea, vomiting. : Denies burning with urination, pain. Historical: - Allergies: 07:47 Codeine; vg1 07:47 Erythromycin; vg1 07:47 narcotic pain meds; vg1 - PMHx: 07:47 Hernia; UTI; vg1 - PSHx: 07:47 section; vg1 - Immunization history:: Client reports receiving the 2nd dose of the Covid vaccine. - Social history:: Smoking status: Patient denies any tobacco usage or history of. Screenin:48 [facility] ED Fall Risk Assessment (Adult) History of falling in the last 3 months, vg1 including since admission No falls in past 3 months (0 pts). Abuse screen: Denies threats or abuse. Denies injuries from another. Nutritional screening: No deficits noted. Tuberculosis screening: No symptoms or risk factors identified. Assessment: 07:48 Reassessment: SEE TRIAGE. vg1 Vital Signs: 07:44 BP 114 / 80; Pulse 65; Resp 14; Temp 98.6(O); Pulse Ox 99% on R/A; Weight 68.04 kg; vg1 Height 5 ft. 2 in. ; Pain 2/10; 07:44 Body Mass Index 27.44 (68.04 kg, 157.48 cm) vg1 07:44 Pain Scale: Adult 1 ED Course: 07:37 Patient arrived in ED. ts1 07:44 Megan Cabral RN is Primary Nurse. vg1 07:47 Triage completed. vg1 07:47 Arm band placed on. vg1 07:48 Reynold Voss MD is Attending Physician. rt 07:48 Patient has correct armband on for positive identification. Bed in low position. Call vg1 light in reach. Side rails up X 1. 07:48 No provider procedures requiring assistance completed. vg1 08:29 Patient did not have IV access during this emergency room visit. vg1 Administered Medications: No medications were administered Medication: 07:48 VIS not applicable for this client. vg1 Outcome: 08:18 Discharge ordered by . rt 08:26 Discharged to home ambulatory. vg1 08:26 Condition: good 08:26 Discharge instructions given to patient, Instructed on discharge instructions, follow up and referral plans. medication usage, Demonstrated understanding of instructions, follow-up care, medications, Prescriptions given X 1. 08:29 Patient left the ED. vg1 Signatures: Megan Cabral RN RN vg1 Reynold Voss MD MD rt Haley Spann, RAMÍREZ PAS ts1
[2023-02-04 08:34] VITALS: BP 114/80; TEMP 98.6; O2SAT 99
== END 2023-02-04 08:29 | disposition home or self-care (01) ==
LOC: ER 07:36
DX: N39.0 Urinary tract infection, site not specified (principal); Z88.3 Allergy status to other anti-infective agents; Z88.5 Allergy status to narcotic agent
CPT/HCPCS: 81001

== ENCOUNTER → 2023-10-01 | Emergency (ER) | payer OTHER ==
[~2023-10-01] MED LIST: CEFTRIAXONE 1000 MG/VIAL ONE; CIPROFLOXACIN HCL 500 MG TAB ONE; WATER FOR INJ,STERILE 10 ML ONE
--- OUTSIDE RECORDS SUMMARY | 2023-10-01 07:16 | XMS REPORT | Continuity of Care Document ---
Author Name Unknown Address [address] [facility] [address] [facility] [address] [place] [address] [facility] Address [address] [place] [address] Care Team Providers Care Special Events Planner Name Role Phone Venita Richardson MD Primary Care Physici an Teresa Troncoso Attending Clinician Unavailable VENITA RICHARDSON Attending Clinician Princess vailable Venita Richardson MD Attending Clinician ASHLEY SELF Attending Clinician Unavailable Ashley Self PA-C Attending Clinician [phone] Unknown, Attending Attending Clinician Unavailab le Doctor Unassigned, [place] Attending Clinician U navailable Lab, Ang - Db Attending Clinician Unavailable VENITA RICHARDSON Admitting Clinician Princess vailable Payers Payer Name Policy Type Policy Number Effective Date Expirati on Date Source STEFFANY BEJARANO [id number] 2022 00:00:00 Problems Condition Name Condition Details Condition Category Status Onset Date Resolution Date Last Treatment Date Treating Clinician Comments Source Renal cyst Renal cyst Disease Active 6- 00:00: 00 [facility] Renal cyst Renal cyst Problem Active [facility] Rash and nonspecifi c skin eruption Rash and nonspecifi c skin eruption Problem Active [facility] Allergies, Adverse Reactions, Alerts Allergy Name Allergy Type Status Severity Reaction(s) Onset Date Inactive Date Treating Clinician Comments Source WILBER CHACONIN DRUG Active High Rash 9 00:00: 00 [facility] Erythrom ycin Propensi ty to adverse reaction s to drug Active Rash 06-08 00:00: 00 [facility] Azithrom ycin Propensi ty to adverse reaction s to drug Active Rash 02-23 00:00: 00 [facility] Codeine Propensi ty to adverse reaction s to drug Active Rash 02-23 00:00: 00 [facility] AZITHROM YCIN DRUG INGREDI Active Med Rash 02-23 00:00: 00 [facility] CODEINE DRUG INGREDI Active Med Rash 02-23 00:00: 00 [facility] NO KNOWN ALLERGIE S Drug Class Active [facility] Social History Social Habit Start Date Stop Date Quantity Comments Source Gender identity [facility] Sexual orientation U [facility] Alcohol intake 2023-06-08 00:00:00 2023-06-08 00:00:00 Ex-drinker (finding) [facility] Tobacco use and exposure 2023-02-23 00:00:00 2023-02-23 00:00:00 Smokeless tobacco non-user [facility] Alcohol Comment 2023-02-23 00:00:00 2023-02-23 00:00:00 rarely [facility] History of Social function 2023-02-23 00:00:00 2023-02-23 00:00:00 [facility] Sex Assigned At 1970 00:00:00 1970 00:00:00 [facility] Smoking Status Start Date Stop Date Source Never smoked tobacco [facility] Medications Ordered Medication Name Filled Medication Name Start Date Stop Date Current Medication? Ordering Clinician Indication Dosage Frequency Signature (SIG) Comments Components Source Estradiol (VAGIFEM) 10 mcg tablet 2022-09 00:00: 00 Yes [id number] Insert 1 tab in the vagina nightly for 2 weeks. After that, insert 1 tab in the vagina twice a week [facility] Nitrofurant oin&Nit. Macrocryst (MACROBID) 100 mg capsule 06-08 00:00: 00 Yes [id number] 100mg Take 1 capsule by mouth in the morning and 1 capsule in the evening. [facility] Nitrofurant oin&Nit. Macrocryst (MACROBID) 100 mg capsule 06-08 00:00: 00 Yes [id number] 100mg Take 1 capsule by mouth in the morning and 1 capsule in the evening. [facility] Nitrofurant oin&Nit. Macrocryst (MACROBID) 100 mg capsule 06-08 00:00: 00 Yes [id number] 100mg Take 1 capsule by mouth in the morning and 1 capsule in the evening. [facility] ascorbic acid (VITAMIN C ORAL) 04-06 08:48: 31 Yes 1{tbl} Take 1 tablet by mouth in the morning. [facility] ascorbic acid (VITAMIN C ORAL) 04-06 08:48: 31 Yes 1{tbl} Take 1 tablet by mouth in the morning. [facility] ascorbic acid (VITAMIN C ORAL) 04-06 08:48: 31 Yes 1{tbl} Take 1 tablet by mouth in the morning. [facility] ascorbic acid (VITAMIN C ORAL) 04-06 08:48: 31 Yes 1{tbl} Take 1 tablet by mouth in the morning. [facility] ascorbic acid (VITAMIN C ORAL) 04-06 08:48: 31 Yes 1{tbl} Take 1 tablet by mouth in the morning. [facility] ascorbic acid (VITAMIN C ORAL) 04-06 08:48: 31 Yes 1{tbl} Take 1 tablet by mouth in the morning. [facility] ascorbic acid (VITAMIN C ORAL) 04-06 08:48: 31 Yes 1{tbl} Take 1 tablet by mouth in the morning. [facility] ascorbic acid (VITAMIN C ORAL) 04-06 08:48: 31 Yes 1{tbl} Take 1 tablet by mouth in the morning. [facility] ascorbic acid (VITAMIN C ORAL) 04-06 08:48: 31 Yes 1{tbl} Take 1 tablet by mouth in the morning. [facility] ascorbic acid (VITAMIN C ORAL) 2022-0 04-06 08:48: 31 Yes 1{tbl} Take 1 tablet by mouth in the morning. [facility] ascorbic acid (VITAMIN C ORAL) 2022-0 04-06 08:48: 31 Yes 1{tbl} Take 1 tablet by mouth in the morning. [facility] MULTIVITAMI N ORAL 3-0 02-23 08:09: 03 Yes 1{tbl} Take 1 tablet by mouth in the morning. [facility] CRANBERRY ORAL 2022-0 02-23 08:09: 03 Yes 1{tbl} Take 1 tablet by mouth in the morning. [facility] CALCIUM-VIT MARTINEZ D3-MAGNESIU M ORAL 2022-0 02-23 08:09: 03 Yes 1{tbl} Take 1 tablet by mouth in the morning. [facility] MULTIVITAMI N ORAL 3-0 02-23 08:09: 03 Yes 1{tbl} Take 1 tablet by mouth in the morning. [facility] CRANBERRY ORAL 2022-0 02-23 08:09: 03 Yes 1{tbl} Take 1 tablet by mouth in the morning. [facility] CALCIUM-VIT MARTINEZ D3-MAGNESIU M ORAL 2022-0 02-23 08:09: 03 Yes 1{tbl} Take 1 tablet by mouth in the morning. [facility] MULTIVITAMI N ORAL 3-0 02-23 08:09: 03 Yes 1{tbl} Take 1 tablet by mouth in the morning. [facility] CRANBERRY ORAL 2022-0 02-23 08:09: 03 Yes 1{tbl} Take 1 tablet by mouth in the morning. [facility] CALCIUM-VIT MARTINEZ D3-MAGNESIU M ORAL 2022-0 02-23 08:09: 03 Yes 1{tbl} Take 1 tablet by mouth in the morning. [facility] MULTIVITAMI N ORAL 3-0 02-23 08:09: 03 Yes 1{tbl} Take 1 tablet by mouth in the morning. [facility] CRANBERRY ORAL 2023-0 02-23 08:09: 03 Yes 1{tbl} Take 1 tablet by mouth in the morning. [facility] CALCIUM-VIT MARTINEZ D3-MAGNESIU M ORAL 2023-0 02-23 08:09: 03 Yes 1{tbl} Take 1 tablet by mouth in the morning. [facility] MULTIVITAMI N ORAL 2023-0 02-23 08:09: 03 Yes 1{tbl} Take 1 tablet by mouth in the morning. [facility] CRANBERRY ORAL 2023-0 02-23 08:09: 03 Yes 1{tbl} Take 1 tablet by mouth in the morning. [facility] CALCIUM-VIT MARTINEZ D3-MAGNESIU M ORAL 3-0 02-23 08:09: 03 Yes 1{tbl} Take 1 tablet by mouth in the morning. [facility] MULTIVITAMI N ORAL 2023-0 02-23 08:09: 03 Yes 1{tbl} Take 1 tablet by mouth in the morning. [facility] CRANBERRY ORAL 2023-0 02-23 08:09: 03 Yes 1{tbl} Take 1 tablet by mouth in the morning. [facility] CALCIUM-VIT MARTINEZ D3-MAGNESIU M ORAL 3-0 02-23 08:09: 03 Yes 1{tbl} Take 1 tablet by mouth in the morning. [facility] MULTIVITAMI N ORAL 2023-0 02-23 08:09: 03 Yes 1{tbl} Take 1 tablet by mouth in the morning. [facility] CRANBERRY ORAL 2023-0 02-23 08:09: 03 Yes 1{tbl} Take 1 tablet by mouth in the morning. [facility] CALCIUM-VIT MARTINEZ D3-MAGNESIU M ORAL 2023-0 02-23 08:09: 03 Yes 1{tbl} Take 1 tablet by mouth in the morning. [facility] MULTIVITAMI N ORAL 2023-0 02-23 08:09: 03 Yes 1{tbl} Take 1 tablet by mouth in the morning. [facility] CRANBERRY ORAL 2023-0 02-23 08:09: 03 Yes 1{tbl} Take 1 tablet by mouth in the morning. [facility] CALCIUM-VIT MARTINEZ D3-MAGNESIU M ORAL 2023-0 6 08:09: 03 Yes 1{tbl} Take 1 tablet by mouth in the morning. [facility] MULTIVITAMI N ORAL 2023-0 6 08:09: 03 Yes 1{tbl} Take 1 tablet by mouth in the morning. [facility] CRANBERRY ORAL 2023-0 6 08:09: 03 Yes 1{tbl} Take 1 tablet by mouth in the morning. [facility] CALCIUM-VIT MARTINEZ D3-MAGNESIU M ORAL 2023-0 6 08:09: 03 Yes 1{tbl} Take 1 tablet by mouth in the morning. [facility] MULTIVITAMI N ORAL 2023-0 02-23 08:09: 03 Yes 1{tbl} Take 1 tablet by mouth in the morning. [facility] CRANBERRY ORAL 2023-0 6 08:09: 03 Yes 1{tbl} Take 1 tablet by mouth in the morning. [facility] CALCIUM-VIT MARTINEZ D3-MAGNESIU M ORAL 2023-0 6 08:09: 03 Yes 1{tbl} Take 1 tablet by mouth in the morning. [facility] MULTIVITAMI N ORAL 2023-0 02-23 08:09: 03 Yes 1{tbl} Take 1 tablet by mouth in the morning. [facility] CRANBERRY ORAL 2023-0 6 08:09: 03 Yes 1{tbl} Take 1 tablet by mouth in the morning. [facility] CALCIUM-VIT MARTINEZ D3-MAGNESIU M ORAL 2023-0 6 08:09: 03 Yes 1{tbl} Take 1 tablet by mouth in the morning. [facility] MULTIVITAMI N ORAL 2023-0 6 08:09: 03 Yes 1{tbl} Take 1 tablet by mouth in the morning. [facility] CRANBERRY ORAL 2023-0 6 08:09: 03 Yes 1{tbl} Take 1 tablet by mouth in the morning. [facility] CALCIUM-VIT MARTINEZ D3-MAGNESIU M ORAL 2023-0 6 08:09: 03 Yes 1{tbl} Take 1 tablet by mouth in the morning. [facility] MULTIVITAMI N ORAL 2023-0 6 08:09: 03 Yes 1{tbl} Take 1 tablet by mouth in the morning. [facility] CRANBERRY ORAL 2023-0 6 08:09: 03 Yes 1{tbl} Take 1 tablet by mouth in the morning. [facility] CALCIUM-VIT MARTINEZ D3-MAGNESIU M ORAL 2023-0 02-23 08:09: 03 Yes 1{tbl} Take 1 tablet by mouth in the morning. [facility] MULTIVITAMI N ORAL 2023-0 02-23 08:09: 03 Yes 1{tbl} Take 1 tablet by mouth in the morning. [facility] CRANBERRY ORAL 2023-0 02-23 08:09: 03 Yes 1{tbl} Take 1 tablet by mouth in the morning. [facility] CALCIUM-VIT MARTNIEZ D3-MAGNESIU M ORAL 2023-0 02-23 08:09: 03 Yes 1{tbl} Take 1 tablet by mouth in the morning. [facility] MULTIVITAMI N ORAL 2023-0 02-23 08:09: 03 Yes 1{tbl} Take 1 tablet by mouth in the morning. [facility] CRANBERRY ORAL 2023-0 6 08:09: 03 Yes 1{tbl} Take 1 tablet by mouth in the morning. [facility] CALCIUM-VIT MARTINEZ D3-MAGNESIU M ORAL 2023-0 6 08:09: 03 Yes 1{tbl} Take 1 tablet by mouth in the morning. [facility] MULTIVITAMI N ORAL 2023-0 6 08:09: 03 Yes 1{tbl} Take 1 tablet by mouth in the morning. [facility] CRANBERRY ORAL 2023-0 6 08:09: 03 Yes 1{tbl} Take 1 tablet by mouth in the morning. [facility] CALCIUM-VIT MARTINEZ D3-MAGNESIU M ORAL 2023-0 6-09 08:09: 03 Yes 1{tbl} Take 1 tablet by mouth in the morning. [facility] MULTIVITAMI N ORAL 3-0 02-23 08:09: 03 Yes 1{tbl} Take 1 tablet by mouth in the morning. [facility] CRANBERRY ORAL 2022-0 02-23 08:09: 03 Yes 1{tbl} Take 1 tablet by mouth in the morning. [facility] CALCIUM-VIT MARTINEZ D3-MAGNESIU M ORAL 2022-0 02-23 08:09: 03 Yes 1{tbl} Take 1 tablet by mouth in the morning. [facility] MULTIVITAMI N ORAL 2022-0 02-23 08:09: 03 Yes 1{tbl} Take 1 tablet by mouth in the morning. [facility] CRANBERRY ORAL 2022-0 02-23 08:09: 03 Yes 1{tbl} Take 1 tablet by mouth in the morning. [facility] CALCIUM-VIT MARTINEZ D3-MAGNESIU M ORAL 2022-0 02-23 08:09: 03 Yes 1{tbl} Take 1 tablet by mouth in the morning. [facility] MULTIVITAMI N ORAL 2022-0 02-23 08:09: 03 Yes 1{tbl} Take 1 tablet by mouth in the morning. [facility] CRANBERRY ORAL 2022-0 02-23 08:09: 03 Yes 1{tbl} Take 1 tablet by mouth in the morning. [facility] CALCIUM-VIT MARTINEZ D3-MAGNESIU M ORAL 2022-0 02-23 08:09: 03 Yes 1{tbl} Take 1 tablet by mouth in the morning. [facility] Estradiol (VAGIFEM) 10 mcg tablet 2022-0 02-23 00:00: 00 Yes [id number] Insert 1 tab in the vagina nightly for 2 weeks. After that, insert 1 tab in the vagina twice a week [facility] Estradiol (VAGIFEM) 10 mcg tablet 3-0 02-23 00:00: 00 Yes [id number] Insert 1 tab in the vagina nightly for 2 weeks. After that, insert 1 tab in the vagina twice a week [facility] Estradiol (VAGIFEM) 10 mcg tablet 2023-0 6 00:00: 00 Yes [id number] Insert 1 tab in the vagina nightly for 2 weeks. After that, insert 1 tab in the vagina twice a week [facility] Estradiol (VAGIFEM) 10 mcg tablet 2023-0 6 00:00: 00 Yes [id number] Insert 1 tab in the vagina nightly for 2 weeks. After that, insert 1 tab in the vagina twice a week [facility] Estradiol (VAGIFEM) 10 mcg tablet 2023-0 6 00:00: 00 Yes [id number] Insert 1 tab in the vagina nightly for 2 weeks. After that, insert 1 tab in the vagina twice a week [facility] Estradiol (VAGIFEM) 10 mcg tablet 2023-0 6 00:00: 00 Yes [id number] Insert 1 tab in the vagina nightly for 2 weeks. After that, insert 1 tab in the vagina twice a week [facility] Estradiol (VAGIFEM) 10 mcg tablet 2023-0 6 00:00: 00 Yes [id number] Insert 1 tab in the vagina nightly for 2 weeks. After that, insert 1 tab in the vagina twice a week [facility] Estradiol (VAGIFEM) 10 mcg tablet 2023-0 6 00:00: 00 Yes [id number] Insert 1 tab in the vagina nightly for 2 weeks. After that, insert 1 tab in the vagina twice a week [facility] Estradiol (VAGIFEM) 10 mcg tablet 2023-0 6 00:00: 00 Yes [id number] Insert 1 tab in the vagina nightly for 2 weeks. After that, insert 1 tab in the vagina twice a week [facility] Estradiol (VAGIFEM) 10 mcg tablet 2023-0 6- 00:00: 00 Yes [id number] Insert 1 tab in the vagina nightly for 2 weeks. After that, insert 1 tab in the vagina twice a week [facility] Estradiol (VAGIFEM) 10 mcg tablet 2023-0 6- 00:00: 00 Yes [id number] Insert 1 tab in the vagina nightly for 2 weeks. After that, insert 1 tab in the vagina twice a week [facility] Estradiol (VAGIFEM) 10 mcg tablet 0 02-23 00:00: 00 Yes [id number] Insert 1 tab in the vagina nightly for 2 weeks. After that, insert 1 tab in the vagina twice a week [facility] Estradiol (VAGIFEM) 10 mcg tablet 0 02-23 00:00: 00 Yes [id number] Insert 1 tab in the vagina nightly for 2 weeks. After that, insert 1 tab in the vagina twice a week [facility] Estradiol (VAGIFEM) 10 mcg tablet 0 02-23 00:00: 00 Yes [id number] Insert 1 tab in the vagina nightly for 2 weeks. After that, insert 1 tab in the vagina twice a week [facility] Estradiol (VAGIFEM) 10 mcg tablet 02-23 00:00: 00 Yes [id number] Insert 1 tab in the vagina nightly for 2 weeks. After that, insert 1 tab in the vagina twice a week [facility] Estradiol (VAGIFEM) 10 mcg tablet 02-23 00:00: 00 Yes [id number] Insert 1 tab in the vagina nightly for 2 weeks. After that, insert 1 tab in the vagina twice a week [facility] Estradiol (VAGIFEM) 10 mcg tablet 02-23 00:00: 00 Yes [id number] Insert 1 tab in the vagina nightly for 2 weeks. After that, insert 1 tab in the vagina twice a week [facility] Estradiol (VAGIFEM) 10 mcg tablet 0 02-23 00:00: 00 Yes [id number] Insert 1 tab in the vagina nightly for 2 weeks. After that, insert 1 tab in the vagina twice a week [facility] Estradiol (VAGIFEM) 10 mcg tablet 02-23 00:00: 00 06-26 00:00 :00 No [id number] Insert 1 tab in the vagina nightly for 2 weeks. After that, insert 1 tab in the vagina twice a week [facility] Nitrofurant oin&Nit. Macrocryst 100 mg capsule 5- 00:00: 00 02-23 00:00 :00 No TAKE ONE CAPSULE BY MOUTH EVERY 12 HOURS FOR 7 DAYS [facility] Nitrofurant oin&Nit. Macrocryst 100 mg capsule 02-04 00:00: 00 02-23 00:00 :00 No TAKE ONE CAPSULE BY MOUTH EVERY 12 HOURS FOR 7 DAYS [facility] Vital Signs Vital Name Observation Time Observation Value Comments S ource Systolic blood pressure 2023-06-08 14:14:00 123 mm[Hg] [facility] Diastolic blood pressure 2023-06-08 14:14:00 84 mm[Hg] [facility] Heart rate 2023-06-08 14:14:00 76 /min [facility] Body temperature 2023-06-08 14:14:00 36.72 Tammie [facility] Respiratory rate 2023-06-08 14:14:00 16 /min [facility] Body height 2023-06-08 14:14:00 152.4 cm [facility] Body weight 2023-06-08 14:14:00 78.926 kg [facility] BMI 2023-06-08 14:14:00 33.98 kg/m2 [facility] Oxygen saturation in Arterial blood by Pulse oximetry 2023-06-08 14:14:00 97 /min [facility] Systolic blood pressure 2023-04-06 13:29:00 136 mm[Hg] [facility] Diastolic blood pressure 2023-04-06 13:29:00 86 mm[Hg] [facility] Heart rate 2023-04-06 13:29:00 71 /min [facility] Body temperature 2023-04-06 13:29:00 36.67 Tammie [facility] Respiratory rate 2023-04-06 13:29:00 18 /min [facility] Body height 2023-04-06 13:29:00 152.4 cm [facility] Body weight 2023-04-06 13:29:00 75.978 kg [facility] BMI 2023-04-06 13:29:00 32.71 kg/m2 [facility] Oxygen saturation in Arterial blood by Pulse oximetry 2023-04-06 13:29:00 99 /min [facility] Systolic blood pressure 2023-02-23 12:56:00 129 mm[Hg] [facility] Diastolic blood pressure 2023-02-23 12:56:00 88 mm[Hg] [facility] Heart rate 2023-02-23 12:56:00 70 /min [facility] Body temperature 2023-02-23 12:56:00 36.5 Tammie [facility] Respiratory rate 2023-02-23 12:56:00 18 /min [facility] Body height 2023-02-23 12:56:00 152.4 cm [facility] Body weight 2023-02-23 12:56:00 75.116 kg [facility] BMI 2023-02-23 12:56:00 32.34 kg/m2 [facility] Oxygen saturation in Arterial blood by Pulse oximetry 2023-02-23 12:56:00 98 /min [facility] Procedures Procedure Date / Time Performed Performing Clinician Source POCT URINALYSIS 2023-06-08 14:17:00 [facility]OR[facility] 2023-06-06 05:01:00 Doctor Unassigned, [place] [facility] BI ULTRASOUND BREAST LIMITED RIGHT 2023-06-01 15:55:10 Venita Richardson [facility] BI DIAGNOSTIC TOMOSYNTHESIS RIGHT 2023-06-01 15:10:17 Venita Richardson [facility] XR FOOT 3+ VW RIGHT 2023-04-06 14:23:29 Venita Colby [facility] ASSIGNMENT OF BENEFITS 2023-04-06 13:23:15 Docto r Unassigned, [place] [facility] EXTERNAL FIT DNA 2023-03-09 12:35:00 Doctor Unas signed, [place] [facility] MEDICAL RELEASE/CLEARANCE FORMS 2023-03-07 05:01:00 Doctor Unassigned, [place] [facility] Encounters Start Date/Time End Date/Time Encounter Type Admission Type Attending [facility] Facility Care Department Encounter ID Source 2021-10-12 11:33:09 [facility] [id number] [facility] 2021-10-12 11:15:13 Outpatient Teresa Troncoso [facility] [id number] [facility] 2021-10-12 10:59:26 Outpatient Teresa Troncoso [facility] [id number] [facility] 2024-02-29 11:00:00 2024-02-29 11:00:00 Outpatient VENITA DEJESUS [facility] [id number] [facility] 2023-06-26 00:00:00 2023-06-26 00:00:00 [facility]ill [facility] 1..840.114 350.1.13.10 4.2.7.2.686 [id number] [facility] 2023-06-08 09:00:00 2023-06-08 09:27:55 Outpatient ASHLEY BEJARANO [facility] [id number] [facility] 2023-06-08 09:00:00 2023-06-08 09:27:55 Urgent Care Ashley Self Unknown, Attending [facility] 1.2.840.114 350.1.13.10 4.2.7.2.686 [id number] [facility] 2023-06-06 00:00:00 2023-06-06 00:00:00 Orders Only Doctor Unassigned, [place] [facility] 1..840.114 350.1.13.10 4.2.7.2.686 [id number] [facility] 2023-06-01 08:57:51 2023-06-01 23:59:00 Hospital Encounter Venita Richardson [facility] 1.2840.114 350.1.13.10 4.2.7.2.686 [id number] [facility] 2023-06-01 08:57:40 2023-06-01 23:59:00 Outpatient R VENITA RICHARDSON [facility] [id number] [facility] 2023-06-01 08:57:40 2023-06-01 23:59:00 Hospital Encounter Venita Richardson [facility] 1.2840.114 350.1.13.10 4.2.7.2.686 [id number] [facility] 2023-04-24 00:00:00 2023-04-24 00:00:00 Case Management Venita Richardson [facility] 1.840.114 350.1.13.10 4.2.7.2.686 [id number] [facility] 2023-04-13 07:38:58 2023-04-13 23:59:00 Hospital Encounter Venita Richardson [facility] 1.2840.114 350.1.13.10 4.2.7.2.686 [id number] [facility] 2023-04-13 07:38:58 2023-04-13 23:59:00 Outpatient R VENITA RICHARDSON [facility] [id number] [facility] 2023-04-06 09:09:48 2023-04-06 23:59:00 Hospital Encounter Venita Richardson [facility] 1..840.114 350.1.13.10 4.2.7.2.686 [id number] [facility] 2023-04-06 09:09:48 2023-04-06 23:59:00 Outpatient R VENITA RICHARDSON [facility] [id number] [facility] 2023-04-06 08:40:00 2023-04-06 09:08:37 Office Visit Venita Richardson [facility] 1.840.114 350.1.13.10 4.2.7.2.686 [id number] [facility] 2023-04-06 00:00:00 2023-04-06 00:00:00 Orders Only Doctor Unassigned, [place] [facility] 1.840.114 350.1.13.10 4.2.7.2.686 [id number] [facility] 2023-03-23 00:00:00 2023-03-23 00:00:00 Refill Venita Richardson [facility] 1.840.114 350.1.13.10 4.2.7.2.686 [id number] [facility] 2023-03-22 00:00:00 2023-03-22 00:00:00 Abstract Venita Richardson [facility] 1.840.114 350.1.13.10 4.2.7.2.686 [id number] [facility] 2023-03-07 00:00:00 2023-03-07 00:00:00 Orders Only Doctor Unassigned, [place] [facility] 1.840.114 350.1.13.10 4.2.7.2.686 [id number] [facility] 2023-02-23 08:45:00 2023-02-23 09:00:00 Backshoe Person Visit Lab, Lewis - Venita Roger [facility] 1.2.840.114 350.1.13.10 4.2.7.2.686 [id number] [facility] 2023-02-23 08:00:00 2023-02-23 08:43:37 Office Visit Kar[facility] , [facility] 1.2.840.114 350.1.13.10 4.2.7.2.686 [id number] [facility] 2023-02-23 08:00:00 2023-02-23 08:43:37 Outpatient R VENITA RICHARDSON [facility] [id number] [facility] 2023-02-23 00:00:00 2023-02-23 00:00:00 Orders Only Venita Richardson [facility] 1.2.840.114 350.1.13.10 4.2.7.2.686 [id number] [facility] 2019-12-21 13:17:00 2019-12-21 13:17:00 Outpatient [facility] [facility] Medicine [id number] [facility] 2019-12-10 08:00:00 2019-12-10 08:00:00 [facility] [id number] [facility] 2019-09-29 02:38:00 2019-09-29 02:38:00 [facility] [id number] [facility] 2019-09-25 15:15:00 2019-09-25 15:15:00 [facility] Medicine [id number] [facility] Results Test Description Test Time Test Comments Results Result Co mments Source [facility] SPECIFIC [id number] 14:18:00* Test Item Value Reference Range Interpretation Comme nts POCT U SP GRAV (test code = 3255) 1.010 mg/dl 1.005-1.025 POCT PH U (test code = 3254) 6 mg/dl 5-8 POCT U LEUK EST (test code = 3263) Trace Negative - Negative POCT U NIT (test code = 3262) neg Negative - Negati ve POCT U PROT (test code = 3259) neg Negative - Negative POCT U GLU (test code = 3256) neg Negative - Negati ve POCT U KETONE (test code = 3258) neg Negative - Negative POCT U UROBILI (test code = 3260) neg 0.2-1 POCT U BILI (test code = 3261) neg Negative - Negative POCT U BLD (test code = 3257) about 250 Negative - Negati ve POCT U COLOR (test code = 3266) yellow POCT U APPEAR (test code = 3267) clear [facility]
--- NOTE | 2023-10-01 07:46 | ER ---
Nurse's Notes [facility] Name: Kyra Barboza Age: 53 yrs Sex: Female : 1970 Arrival Date: 10/01/2023 Time: 07:13 Bed 19 Private MD: Diagnosis: Dysuria;UTI/ Urinary tract infection, site not specified Presentation: 10/01 07:18 Onset of symptoms was September 2023. aa5 07:18 Chief complaint: Patient states: "my back is burning and I know I have a UTI, I also aa5 did the pharmacy UTI kit and it was positive". Coronavirus screen: At this time, the client does not indicate any symptoms associated with coronavirus-19. Ebola Screen: Patient denies travel to an Ebola-affected area in the 21 days before illness onset. Initial Sepsis Screen: Does the patient meet any 2 criteria? No. Patient's initial sepsis screen is negative. Does the patient have a suspected source of infection? No. Patient's initial sepsis screen is negative. Risk Assessment: Do you want to hurt yourself or someone else? Patient reports no desire to harm self or others. 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 - Family history:: not pertinent. - Social history:: Smoking status: unknown. Screenin:38 [facility] ED Fall Risk Assessment (Adult) History of falling in the last 3 months, ap3 including since admission No falls in past 3 months (0 pts). Abuse screen: Denies threats or abuse. Nutritional screening: No deficits noted. Tuberculosis screening: No symptoms or risk factors identified. Assessment: 07:38 General: Appears in no apparent distress. Behavior is calm, cooperative, appropriate ap3 for age. Pain: Complains of pain in low back area Quality of pain is described as burning. Neuro: Level of Consciousness is awake, alert, obeys commands, Oriented to person, place, time, situation. Cardiovascular: Patient's skin is warm and dry. Respiratory: Airway is patent Respiratory effort is even, unlabored, Respiratory pattern is regular, symmetrical. Vital Signs: 07:18 BP 132 / 90; Pulse 71; Resp 18 S; Temp 98.2(O); Pulse Ox 99% on R/A; Weight 72.57 kg aa5 (R); Height 5 ft. 2 in. (R); 07:18 Body Mass Index 29.26 (72.57 kg, 157.48 cm) aa5 ED Course: 07:16 Patient arrived in ED. im 07:17 Hermelindo Wu MD is Attending Physician. [facility] 07:19 Arm band placed on. aa 07:21 Rama Coats, CAROLANN is Primary Nurse. ap3 07:31 Triage completed. aa5 07:38 Patient has correct armband on for positive identification. Bed in low position. Call ap3 light in reach. Side rails up X 1. Pulse ox on. NIBP on. 07:39 No provider procedures requiring assistance completed. ap3 07:52 Provided Education on: medication prior to admission. ap3 07:52 Patient did not have IV access during this emergency room visit. ap3 Administered Medications: 07:52 Drug: Rocephin (cefTRIAXone) IM 1 grams IM once Route: IM; Site: right gluteus; ap3 08:01 Follow up: Response: No adverse reaction ap3 07:52 Drug: Ciprofloxacin PO 500 mg PO once Route: PO; ap3 08:01 Follow up: Response: No adverse reaction ap3 Medication: 07:38 VIS not applicable for this client. ap3 Outcome: 07:46 Discharge ordered by . [facility] 08:01 Discharged to home ambulatory, ap3 08:01 Condition: good 08:01 Discharge instructions given to patient, Instructed on discharge instructions, follow up and referral plans. medication usage, Demonstrated understanding of instructions, follow-up care, medications, Prescriptions given X 2, 08:02 Patient left the ED. ap3 Signatures: Hermelindo Wu MD MD cha Calderon, Audri, RN RN aa5 Rama Coats RN RN ap3 Gina Singletary
--- NOTE | 2023-10-01 07:46 | EDPHYS ---
Physician Documentation [facility] Name: Kyra Barboza Age: 53 yrs Sex: Female : 1970 Arrival Date: 10/01/2023 Time: 07:13 Bed 19 Private MD: CORIE Physician Hermelindo Wu HPI: 10/01 07:41 This 53 yrs old Female presents to ER via Ambulatory with complaints of UTI. marina 07:41 The patient complains of pain in the left low back, left mid back, right mid back and marina right low back. The pain does not radiate. Onset: The symptoms/episode began/occurred 3 day(s) ago. Modifying factors: The symptoms are alleviated by nothing. the symptoms are aggravated by nothing. The patient presents with flank pain, urinary symptoms, dysuria, frequency, urgency. Associated signs and symptoms: Pertinent positives: dysuria. 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 - Family history:: not pertinent. - Social history:: Smoking status: unknown. ROS: 07:41 Constitutional: Negative for fever, chills, and weight loss, Eyes: Negative for injury, marina pain, redness, and discharge, ENT: Negative for injury, pain, and discharge, Neck: Negative for injury, pain, and swelling, Cardiovascular: Negative for chest pain, palpitations, and edema, Respiratory: Negative for shortness of breath, cough, wheezing, and pleuritic chest pain, Abdomen/GI: Negative for abdominal pain, nausea, vomiting, diarrhea, and constipation, Back: Negative for injury and pain, MS/Extremity: Negative for injury and deformity, Skin: Negative for injury, rash, and discoloration, Neuro: Negative for headache, weakness, numbness, tingling, and seizure, Psych: Negative for depression, anxiety, suicide ideation, homicidal ideation, and hallucinations, Allergy/Immunology: Negative for hives, rash, and allergies, Endocrine: Negative for neck swelling, polydipsia, polyuria, polyphagia, and marked weight changes, Hematologic/Lymphatic: Negative for swollen nodes, abnormal bleeding, and unusual bruising, 07:41 : Positive for flank pain, urinary frequency, burning with urination, Exam: 07:41 Constitutional: This is a well developed, well nourished patient who is awake, alert, marina and in no acute distress. Head/Face: Normocephalic, atraumatic. Eyes: Pupils equal round and reactive to light, extra-ocular motions intact. Lids and lashes normal. Conjunctiva and sclera are non-icteric and not injected. Cornea within normal limits. Periorbital areas with no swelling, redness, or edema. ENT: Nares patent. No nasal discharge, no septal abnormalities noted. Tympanic membranes are normal and external auditory canals are clear. Oropharynx with no redness, swelling, or masses, exudates, or evidence of obstruction, uvula midline. Mucous membranes moist. Neck: Trachea midline, no thyromegaly or masses palpated, and no cervical lymphadenopathy. Supple, full range of motion without nuchal rigidity, or vertebral point tenderness. No Meningismus. Chest/axilla: Normal chest wall appearance and motion. Nontender with no deformity. No lesions are appreciated. Cardiovascular: Regular rate and rhythm with a normal S1 and S2. No gallops, murmurs, or rubs. Normal PMI, no JVD. No pulse deficits. Respiratory: Lungs have equal breath sounds bilaterally, clear to auscultation and percussion. No rales, rhonchi or wheezes noted. No increased work of breathing, no retractions or nasal flaring. Abdomen/GI: Soft, non-tender, with normal bowel sounds. No distension or tympany. No guarding or rebound. No evidence of tenderness throughout. Back: No spinal tenderness. No costovertebral tenderness. Full range of motion. Skin: Warm, dry with normal turgor. Normal color with no rashes, no lesions, and no evidence of cellulitis. MS/ Extremity: Pulses equal, no cyanosis. Neurovascular intact. Full, normal range of motion. Neuro: Awake and alert, GCS 15, oriented to person, place, time, and situation. Cranial nerves II-XII grossly intact. Motor strength 5/5 in all extremities. Sensory grossly intact. Cerebellar exam normal. Normal gait. Psych: Awake, alert, with orientation to person, place and time. Behavior, mood, and affect are within normal limits. 07:41 Musculoskeletal/extremity: DVT Exam: No signs of deep vein thrombosis. no pain, no swelling, no tenderness, negative Homans' sign noted on exam, no appreciated bluish discoloration, no erythema, no increased warmth, Vital Signs: 07:18 BP 132 / 90; Pulse 71; Resp 18 S; Temp 98.2(O); Pulse Ox 99% on R/A; Weight 72.57 kg aa5 (R); Height 5 ft. 2 in. (R); 07:18 Body Mass Index 29.26 (72.57 kg, 157.48 cm) aa5 MDM: 07:17 Patient medically screened. marina 07:44 Differential diagnosis: UTI. Data reviewed: vital signs, nurses notes, lab test marina result(s), urinalysis, bacteruria. Consideration of Admission/Observation Escalation of care including admission/observation considered. I considered the following discharge prescriptions or medication management in the emergency department Medications were administered in the Emergency Department. See MAR. Historians other than the Patient: patient well informed. Care significantly affected by the following chronic conditions: hernia, uti. Counseling: I had a detailed discussion with the patient and/or guardian regarding the historical points, exam findings, and any diagnostic results supporting the discharge/admit diagnosis, lab results, the need for outpatient follow up, for definitive care, 10/01 07:39 Order name: Urinalysis w/ reflexes marina 10/01 07:39 Order name: Urine Culture marina Administered Medications: 07:52 Drug: Rocephin (cefTRIAXone) IM 1 grams IM once Route: IM; Site: right gluteus; ap3 08:01 Follow up: Response: No adverse reaction ap3 07:52 Drug: Ciprofloxacin PO 500 mg PO once Route: PO; ap3 08:01 Follow up: Response: No adverse reaction ap3 Disposition Summary: 10/01/23 07:46 Discharge Ordered Notes: Location: Home marina Problem: new marina Symptoms: have improved marina Condition: Stable marina Diagnosis - Dysuria marina - UTI/ Urinary tract infection, site not specified marina Followup: marina - With: Private Physician - When: 2 - 3 days - Reason: Recheck today's complaints, Continuance of care, Re-evaluation by your physician Discharge Instructions: - Discharge Summary Sheet marina - Dysuria marina - Urinary Tract Infection, Adult marina - Urinary Tract Infection, Adult, [id number] Forms: - Medication Reconciliation Form marina - Thank You Letter marina - Antibiotic Education marina - Prescription Opioid Use marina - Patient Portal Instructions marina - Leadership Thank You Letter marina - Work release form ap3 Prescriptions: - Cipro 250 mg Oral tablet - take 1 tablet ORAL route every 12 hours; 14 tablet; Refills: 0, Product [facility] Selection Permitted - Pyridium 200 mg Oral Tablet - take 1 tablet ORAL route every 8 hours for 3 days; 9 tablet; Refills: 0, [facility] Product Selection Permitted Signatures: Dispatcher [employer] EDHermelindo Stevenson MD MD cha Calderon, Audri, RN RN aa5 Rama Coats RN RN ap3
[2023-10-01 08:04] LABS: Urine Bacteria None Seen /HPF (<20); Urine Bilirubin NEGATIVE (Negative); Urine Blood Trace (Negative); Urine Clarity Turbid (Clear); Urine Color Light-Yellow (Yellow); Urine Glucose NEGATIVE (Negative); Urine Mucus Slight /HPF (None Seen); Urine Protein NEGATIVE (Negative); Urine RBC <5 /HPF (None Seen); Urine Urobilinogen Normal (Normal)
[2023-10-01 08:27] VITALS: BP 132/90; TEMP 98.2; O2SAT 99
== END ==
LOC: ER 07:13
DX: N39.0 Urinary tract infection, site not specified (principal); Z88.3 Allergy status to other anti-infective agents; Z88.5 Allergy status to narcotic agent
CPT/HCPCS: 87088; 81001; 87086; 96372; 99284; J0696

== ENCOUNTER 2024-12-10 18:38 | Emergency (ER) | payer OTHER ==
--- OUTSIDE RECORDS SUMMARY | 2024-12-10 18:42 | XMS REPORT | Continuity of Care Document ---
Author Name Unknown Address [address] [facility] [address] [place] [address] [facility] [place] [facility] [address] [facility] [address] [place] [address] Care Team Providers Care Manager Ob Name Role Phone SAMSON ROBLES Primary Care Physician Unavailab Teresa Whitney Attending Clinician Unavailable DEREK MARTINEZ Attending Clinician Unavailable SAMSON ROBLES Attending Clinician Unavailable Doctor Unassigned, [place] Attending Clinician U Samson Ordonez Attending Clinician [phone] Lab, Ang - Db Attending Clinician Unavailable RADIOLOGY Attending Clinician Unavailable Radiology Attending Clinician Unavailable Derek Martinez MD Attending Clinician [phone] Doctor Unassigned, [place] Attending Clinician U Derek Alcantara MD Attending Clinician [phone] Lab, Ang - Paulo Attending Clinician Unavailable Samson Carpio Attending Clinician [phone] VENITA HUDDLESTON Attending Clinician Princess Elvin Unger MD Attending Clinician [phone] ELVIN SCHROEDER Attending Clinician Unavailable Unknown, Attending Attending Clinician UnavailVenita Askew MD Attending Clinician ASHLEY MIKE Attending Clinician Unavailable Ashley Mike PA-C Attending Clinician [phone] VENITA HUDDLESTON Admitting Clinician Princess DEREK Millard Admitting Clinician Unavailable Payers Payer Name Policy Type Policy Number Effective Date Expirati on Date Source [facility] [id number] 2024 00:00:00 Problems Condition Name Condition Details Condition Category Status Onset Date Resolution Date Last Treatment Date Treating Clinician Comments Source Elevated hemoglobin A1c Elevated hemoglobin A1c Disease Active 2023-09 00:00: 00 [facility] Elevated liver function tests Elevated liver function tests Disease Active 2023-09 2 00:00: 00 [facility] HSV-1 infection HSV-1 infection Disease Active 2023-09 00:00: 00 [facility] Anxiety Anxiety Disease Active 2023-09 00:00: 00 [facility] Mild ascending aorta dilatation Mild ascending aorta dilatation Disease Active 06-06 00:00: 00 [facility] Family history of first degree relative with bicuspid aortic valve Family history of first degree relative with bicuspid aortic valve Disease Active 04-04 00:00: 00 [facility] Other chest pain Other chest pain Disease Active 04-04 00:00: 00 [facility] Elevated blood pressure reading without diagnosis of hypertensi on Elevated blood pressure reading without diagnosis of hypertensi on Disease Active 04-04 00:00: 00 [facility] Primary hypertensi on Primary hypertensi on Disease Active 04-04 00:00: 00 [facility] Wellness examinatio n Wellness examinatio n Disease Active 03-14 00:00: 00 [facility] Family history of ischemic heart disease Family history of ischemic heart disease Disease Active 03-14 00:00: 00 [facility] Atrophic vaginitis Atrophic vaginitis Disease Active 03-14 00:00: 00 [facility] Renal cyst Renal cyst Disease Active 02-23 00:00: 00 [facility] Renal cyst Renal cyst Problem Active [facility] Rash and nonspecifi c skin eruption Rash and nonspecifi c skin eruption Problem Active [facility] Allergies, Adverse Reactions, Alerts Allergy Name Allergy Type Status Severity Reaction(s) Onset Date Inactive Date Treating Clinician Comments Source ERYTHROM YCIN DRUG Active High Rash 06-08 00:00: 00 [facility] Erythrom ycin Propensi ty to adverse reaction s to drug Active Rash 06-08 00:00: 00 [facility] CODEINE DRUG INGREDI Active Med Rash 02-23 00:00: 00 [facility] Azithrom ycin Propensi ty to adverse reaction s to drug Active Rash 02-23 00:00: 00 [facility] Codeine Propensi ty to adverse reaction s to drug Active Rash 02-23 00:00: 00 [facility] AZITHROM YCIN DRUG INGREDI Active Med Rash 02-23 00:00: 00 [facility] NO KNOWN ALLERGIE S Drug Class Active [facility] Social History Social Habit Start Date Stop Date Quantity Comments Source Gender identity [facility] Sexual orientation [facility] Alcoholic beverage intake 2024-08-19 00:00:00 2024-08-19 00:00:00 Ex-drinker (finding) [facility] Alcohol intake 2024-01-11 00:00:00 2024-01-11 00:00:00 Ex-drinker (finding) [facility] Tobacco use and exposure 2023-02-23 00:00:00 2023-02-23 00:00:00 Smokeless tobacco non-user [facility] Alcohol Comment 2023-02-23 00:00:00 2023-02-23 00:00:00 rarely [facility] History of Social function 2023-02-23 00:00:00 2023-02-23 00:00:00 [facility] Sex assigned at 1970 00:00:00 1970 00:00:00 [facility] Smoking Status Start Date Stop Date Source Never smoked tobacco [facility] Medications Ordered Medication Name Filled Medication Name Start Date Stop Date Current Medication? Ordering Clinician Indication Dosage Frequency Signature (SIG) Comments Components Source amLODIPine 2.5 mg tablet 2023-09 00:00: 00 Yes [id number] 2.5mg Take 1 tablet by mouth in the morning. [facility] busPIRone 10 mg tablet 2023-09 2- 00:00: 00 09-19 05:59 :00 No [id number] 10mg Take 1 tablet by mouth 2 (two) times daily as needed (anxiety) for up to 30 days. [facility] acyclovir 400 mg tablet 2023-09 2 00:00: 00 08-25 05:59 :00 No [id number] 400mg Take 1 tablet by mouth 5 (five) times daily for 5 days. [facility] amLODIPine 2.5 mg tablet - 00:00: 00 06-07 04:59 :00 No [id number] 2.5mg Take 1 tablet by mouth in the morning. [facility] amLODIPine 2.5 mg tablet - 00:00: 00 06-06 00:00 :00 No [id number] 2.5mg Take 1 tablet by mouth in the morning for 180 days. [facility] bromphenira mine-pseudo ephedrine-D M (BROMFED DM) 2-30-10 mg/5 mL syrup 01-10 00:00: 00 Yes [id number] 10mL Take 10 mL by mouth 4 (four) times daily as needed for Cold symptoms or Cough. [facility] methylPREDN ISolone (MEDROL, JUSTEN,) 4 mg tablets 01-10 00:00: 00 Yes [id number] Take by mouth SEE-INSTRU CTIONS. follow package directions [facility] azelastine 137 mcg (0.1 %) nasal spray 01-10 00:00: 00 Yes [id number] 1{spray } Use 1 [place] in each nostril in the morning and 1 [place] in the evening. Use in each nostril as directed [facility] amoxicillin -clavulanat e (AUGMENTIN) 875-125 mg per tablet 01-10 00:00: 00 01-21 04:59 :00 No [id number] 1{tbl} Take 1 tablet by mouth in the morning and 1 tablet in the evening. Do all this for 10 days. [facility] Estradiol (VAGIFEM) 10 mcg tablet 2022-09 00:00: 00 Yes [id number] Insert 1 tab in the vagina nightly for 2 weeks. After that, insert 1 tab in the vagina twice a week [facility] Nitrofurant oin&Nit. Macrocryst (MACROBID) 100 mg capsule 06-08 00:00: 00 Yes [id number] 100mg Take 1 capsule by mouth in the morning and 1 capsule in the evening. [facility] ascorbic acid (VITAMIN C ORAL) 04-06 08:48: 31 Yes 1{tbl} Take 1 tablet by mouth in the morning. [facility] ascorbic acid (VITAMIN C ORAL) 02-23 08:09: 03 Yes 1{tbl} Take 1 tablet by mouth in the morning. [facility] Estradiol (VAGIFEM) 10 mcg tablet 02-23 00:00: 00 06-26 00:00 :00 No [id number] Insert 1 tab in the vagina nightly for 2 weeks. After that, insert 1 tab in the vagina twice a week [facility] Nitrofurant oin&Nit. Macrocryst 100 mg capsule 02-04 00:00: 00 02-23 00:00 :00 No TAKE ONE CAPSULE BY MOUTH EVERY 12 HOURS FOR 7 DAYS [facility] Immunizations Ordered Immunization Name Filled Immunization Name Date Status Comments Source TDAP 2024-06-11 00:00:00 Completed Influenza Virus Vaccine Quad ID [id number] YRS 2024-06-04 00:00:00 Completed Vital Signs Vital Name Observation Time Observation Value Comments S rivas Systolic blood pressure 2024-08-19 19:56:00 122 mm[Hg] [facility] Diastolic blood pressure 2024-08-19 19:56:00 75 mm[Hg] [facility] Heart rate 2024-08-19 19:55:00 62 /min Unive [facility] Body temperature 2024-08-19 19:55:00 36.78 Tammie [facility] Respiratory rate 2024-08-19 19:55:00 18 /min [facility] Body height 2024-08-19 19:55:00 152.4 cm [facility] Body weight 2024-08-19 19:55:00 64.229 kg [facility] BMI 2024-08-19 19:55:00 27.65 kg/m2 [facility] Oxygen saturation in Arterial blood by Pulse oximetry 2024-08-19 19:55:00 99 /min [facility] Systolic blood pressure 2024-06-06 13:08:00 128 mm[Hg] [facility] Diastolic blood pressure 2024-06-06 13:08:00 82 mm[Hg] [facility] Heart rate 2024-06-06 13:08:00 82 /min [facility] Oxygen saturation in Arterial blood by Pulse oximetry 2024-06-06 13:08:00 100 /min [facility] Respiratory rate 2024-06-06 13:06:00 16 /min [facility] Body height 2024-06-06 13:06:00 152.4 cm [facility] Body weight 2024-06-06 13:06:00 66.361 kg Univ [facility] BMI 2024-06-06 13:06:00 28.57 kg/m2 [facility] Systolic blood pressure 2024-04-04 14:26:00 131 mm[Hg] [facility] Diastolic blood pressure 2024-04-04 14:26:00 85 mm[Hg] [facility] Heart rate 2024-04-04 14:26:00 70 /min [facility] Respiratory rate 2024-04-04 14:26:00 17 /min [facility] Body height 2024-04-04 14:26:00 157.5 cm [facility] Body weight 2024-04-04 14:26:00 72.292 kg [facility] BMI 2024-04-04 14:26:00 29.15 kg/m2 [facility] Oxygen saturation in Arterial blood by Pulse oximetry 2024-04-04 14:26:00 100 /min [facility] Systolic blood pressure 2024-03-14 21:05:00 126 mm[Hg] [facility] Diastolic blood pressure 2024-03-14 21:05:00 85 mm[Hg] [facility] Heart rate 2024-03-14 21:05:00 84 /min Unive [facility] Respiratory rate 2024-03-14 21:05:00 18 /min [facility] Body height 2024-03-14 21:05:00 152.4 cm [facility] Body weight 2024-03-14 21:05:00 73.12 kg [facility] BMI 2024-03-14 21:05:00 31.48 kg/m2 [facility] Oxygen saturation in Arterial blood by Pulse oximetry 2024-03-14 21:05:00 98 /min [facility] Systolic blood pressure 2024-01-11 18:40:00 137 mm[Hg] [facility] Diastolic blood pressure 2024-01-11 18:40:00 84 mm[Hg] [facility] Heart rate 2024-01-11 18:40:00 88 /min Unive [facility] Body temperature 2024-01-11 18:40:00 37.06 Tammie [facility] Respiratory rate 2024-01-11 18:40:00 16 /min [facility] Body weight 2024-01-11 18:40:00 79.379 kg [facility] BMI 2024-01-11 18:40:00 34.18 kg/m2 [facility] Oxygen saturation in Arterial blood by Pulse oximetry 2024-01-11 18:40:00 99 /min [facility] Systolic blood pressure 2023-06-08 14:14:00 123 mm[Hg] [facility] Diastolic blood pressure 2023-06-08 14:14:00 84 mm[Hg] [facility] Heart rate 2023-06-08 14:14:00 76 /min Unive [facility] Body temperature 2023-06-08 14:14:00 36.72 Tammie [facility] Respiratory rate 2023-06-08 14:14:00 16 /min [facility] Body height 2023-06-08 14:14:00 152.4 cm [facility] Body weight 2023-06-08 14:14:00 78.926 kg [facility] BMI 2023-06-08 14:14:00 33.98 kg/m2 [facility] Oxygen saturation in Arterial blood by Pulse oximetry 2023-06-08 14:14:00 97 /min [facility] Systolic blood pressure 2023-04-06 13:29:00 136 mm[Hg] [facility] Diastolic blood pressure 2023-04-06 13:29:00 86 mm[Hg] [facility] Heart rate 2023-04-06 13:29:00 71 /min Unive [facility] Body temperature 2023-04-06 13:29:00 36.67 Tammie [facility] Respiratory rate 2023-04-06 13:29:00 18 /min [facility] Body height 2023-04-06 13:29:00 152.4 cm [facility] Body weight 2023-04-06 13:29:00 75.978 kg [facility] BMI 2023-04-06 13:29:00 32.71 kg/m2 [facility] Oxygen saturation in Arterial blood by Pulse oximetry 2023-04-06 13:29:00 99 /min [facility] Systolic blood pressure 2023-02-23 12:56:00 129 mm[Hg] [facility] Diastolic blood pressure 2023-02-23 12:56:00 88 mm[Hg] [facility] Heart rate 2023-02-23 12:56:00 70 /min Unive [facility] Body temperature 2023-02-23 12:56:00 36.5 Tammie [facility] Respiratory rate 2023-02-23 12:56:00 18 /min [facility] Body height 2023-02-23 12:56:00 152.4 cm [facility] Body weight 2023-02-23 12:56:00 75.116 kg [facility] BMI 2023-02-23 12:56:00 32.34 kg/m2 [facility] Oxygen saturation in Arterial blood by Pulse oximetry 2023-02-23 12:56:00 98 /min [place] [facility] Procedures Procedure Date / Time Performed Performing Clinician Source THYROID STIMULATING HORMONE 2024-03-14 21:45:00 Venita Huddleston [facility] COMP. METABOLIC PANEL (35103) 2024-03-14 21:45:00 Venita Huddleston [facility] LIPID PANEL (29033)(TOTAL CHOLESTEROL, TRIGLYCERIDES, HDL) 2024-03-14 21:45:00 Venita Huddleston [facility] CBC WITH DIFF 2024-03-14 21:45:00 Venita Huddleston [facility] GLYCOSYLATED HEMOGLOBIN (A1C) 2024-03-14 21:45:00 Venita Huddleston [facility] GC & CHLAMYDIA AMPLIFIED ASSAY 2024-03-14 21:45:00 Samson Robles [facility] RPR (QUANTITATIVE) 2024-03-14 21:45:[address] [facility] HSV 1 AND 2 GLYCOPROTEIN G IGG 2024-03-14 21:45:00 Samson Robles [facility] HIV 1/2 AG-AB WITH REFLEX 2024-03-14 21:45:00 Samson Robles [facility] POCT URINALYSIS 2023-06-08 14:17:00 Ashley Mike Un [facility] EXTERNAL PROVIDER RECORDS 2023-06-06 05:01:00 Doctor Unassigned, [place] [facility] BI ULTRASOUND BREAST LIMITED RIGHT 2023-06-01 15:55:10 Venita Huddleston [facility] BI DIAGNOSTIC TOMOSYNTHESIS RIGHT 2023-06-01 15:10:17 Venita Huddleston [facility] XR FOOT 3+ VW RIGHT 2023-04-06 14:23:29 Venita Colby [facility] ASSIGNMENT OF BENEFITS 2023-04-06 13:23:15 Docto r Unassigned, [place] [facility] EXTERNAL FIT DNA 2023-03-09 12:35:00 Doctor Unas signed, [place] [facility] MEDICAL RELEASE/CLEARANCE FORMS 2023-03-07 05:01:00 Doctor Unassigned, [place] [facility] Encounters Start Date/Time End Date/Time Encounter Type Admission Type Attending [facility] Facility Care Department Encounter ID Source 2021-10-12 11:33:09 Outpatient Teresa Troncoso [facility] [id number] [facility] 2021-10-12 11:15:13 Outpatient Teresa Troncoso [facility] [id number] [facility] 2021-10-12 10:59:26 Outpatient Teresa Troncoso [facility] [id number] [facility] 2024-12-05 11:30:00 2024-12-05 11:30:00 Outpatient R SAMSON ROBLES [facility] [id number] [facility] 2024-08-20 00:00:00 2024-08-20 10:17:56 Patient Secure Msg Doctor Unassigned, [place] Doctor Unassigned, [place] [facility] 1.2.840.114 350.1.13.10 4.2.7.2.686 [id number] [facility] 2024-08-19 00:00:00 2024-08-19 15:20:04 Telephone Samson Robles [facility] 1.2.840.114 350.1.13.10 4.2.7.2.686 [id number] [facility] 2024-08-19 15:00:00 2024-08-19 15:15:00 Tourist Information Officer Visit Lab, Ang - Samson Aguero Lab, Ang - Paulo [facility] 1.2.840.114 350.1.13.10 4.2.7.2.686 [id number] [facility] 2024-08-19 15:00:00 2024-08-19 15:00:00 Outpatient R SAMSON ROBLES [facility] [id number] [facility] 2024-08-19 14:00:00 2024-08-19 14:13:05 [facility] 1.84.114 350.1.13.10 4.2.7.2.686 [id number] [facility] 2024-08-19 14:00:00 2024-08-19 14:00:00 Outpatient R SAMSON ROBLES [facility] [id number] [facility] 2024-06-20 09:51:06 2024-06-20 23:59:00 Outpatient R RADIOLOGY [facility] [id number] [facility] 2024-06-20 09:51:06 2024-06-20 23:59:00 Hospital Encounter Radiology Radiology [facility] 1..114 350.1.13.10 4.2.7.2.686 [id number] [facility] 2024-06-06 08:00:00 2024-06-06 08:38:35 Outpatient R DEREK MARTINEZ [facility] [id number] [facility] 2024-06-06 08:00:00 2024-06-06 08:38:35 [facility] 1.114 350.1.13.10 4.2.7.2.686 [id number] [facility] 2024-04-21 00:00:00 2024-04-21 11:10:03 Telephone Apoorva [facility] 1..114 350.1.13.10 4.2.7.2.686 [id number] [facility] 2024-03-15 00:00:00 2024-04-19 18:24:05 Patient Secure Msg Doctor Unassigned, [place] [facility] 1.2840.114 350.1.13.10 4.2.7.2.686 [id number] [facility] 2024-03-18 00:00:00 2024-04-19 18:21:38 Patient Secure Msg Doctor Unassigned, [place] [facility] 1..114 350.1.13.10 4.2.7.2.686 [id number] [facility] 2024-04-18 08:55:24 2024-04-18 23:59:00 [id number] [facility] 2024-04-18 08:55:24 2024-04-18 23:59:00 [facility].114 350.1.13.10 4.2.7.2.686 [id number] [facility] 2024-04-04 09:30:00 2024-04-04 09:51:22 [facility] [id number] [facility] 2024-04-04 09:30:00 2024-04-04 09:51:22 Office Visit Apoorva [facility] 1..114 350.1.13.10 4.2.7.2.686 [id number] [facility] 2024-03-19 00:00:00 2024-03-19 09:22:01 Patient Secure Msg Doctor Unassigned, [place] [facility] 1.20.114 350.1.13.10 4.2.7.2.686 [id number] [facility] 2024-03-18 00:00:00 2024-03-18 15:18:40 Patient Secure Msg Doctor Unassigned, [place] [facility] 1.840.114 350.1.13.10 4.2.7.2.686 [id number] [facility] 2024-03-14 16:45:00 2024-03-14 16:46:25 Tourist Information Officer Visit Lab, [place] [facility] 1..840.114 350.1.13.10 4.2.7.2.686 [id number] [facility] 2024-03-14 16:00:00 2024-03-14 16:39:28 Outpatient R MARGARET SAMSON [facility] [id number] [facility] 2024-03-14 16:00:00 2024-03-14 16:30:00 Office Visit MargaretSamson [facility] 1.840.114 350.1.13.10 4.2.7.2.686 [id number] [facility] 2024-02-29 11:00:00 2024-02-29 11:00:00 Outpatient R VENITA HUDDLESTON [facility] [id number] [facility] 2024-01-11 00:00:00 2024-01-23 10:34:38 Letter (Out) Alexandre Elvin [facility] 1..840.114 350.1.13.10 4.2.7.2.686 [id number] [facility] 2024-01-11 13:40:00 2024-01-11 13:49:57 Outpatient R ELVIN SCHROEDER [facility] [id number] [facility] 2024-01-11 13:40:00 2024-01-11 13:49:57 Urgent Care Elvin Schroeder Unknown, Attending [facility] 1.840.114 350.1.13.10 4.2.7.2.686 [id number] [facility] 2023-06-26 00:00:00 2023-06-26 00:00:00 Refill Venita Huddleston [facility] 1.84.114 350.1.13.10 4.2.7.2.686 [id number] [facility] 2023-06-08 09:00:00 2023-06-08 09:27:55 Outpatient R ASHLEY MIKE [facility] [id number] [facility] 2023-06-08 09:00:00 2023-06-08 09:27:55 Urgent Care Ashley Mike Unknown, Attending [facility] 1.84.114 350.1.13.10 4.2.7.2.686 [id number] [facility] 2023-06-06 00:00:00 2023-06-06 00:00:00 Orders Only Doctor Unassigned, [place] [facility] 1.114 350.1.13.10 4.2.7.2.686 [id number] [facility] 2023-06-01 08:57:51 2023-06-01 23:59:00 Hospital Encounter Venita [place] [facility] [place] 1.114 350.1.13.10 4.2.7.2.686 [id number] [facility] 2023-06-01 08:57:40 2023-06-01 23:59:00 Outpatient R VENITA [facility] [id number] [facility] 2023-06-01 08:57:40 2023-06-01 23:59:00 Hospital Encounter Venita [place] [facility] [place] 1.2.840.114 350.1.13.10 4.2.7.2.686 [id number] [facility] 2023-04-24 00:00:00 2023-04-24 00:00:00 Case Management Venita [facility] 1.2.840.114 350.1.13.10 4.2.7.2.686 [id number] [facility] 2023-04-13 07:38:58 2023-04-13 23:59:00 Hospital Encounter Venita [place] [facility] 1.2.840.114 350.1.13.10 4.2.7.2.686 [id number] [facility] 2023-04-13 07:38:58 2023-04-13 23:59:00 Outpatient R VENITA [facility] [id number] [facility] 2023-04-06 09:09:48 2023-04-06 23:59:00 Hospital Encounter Venita [facility] 1.2.840.114 350.1.13.10 4.2.7.2.686 [id number] [facility] 2023-04-06 09:09:48 2023-04-06 23:59:00 Outpatient R VENITA [facility] [id number] [facility] 2023-04-06 08:40:00 2023-04-06 09:08:37 Office Visit [facility] 1.2840.114 350.1.13.10 4.2.7.2.686 [id number] [facility] 2023-04-06 00:00:00 2023-04-06 00:00:00 Orders Only Doctor Unassigned, [place] [facility] 1.2840.114 350.1.13.10 4.2.7.2.686 [id number] [facility] 2023-03-23 00:00:00 2023-03-23 00:00:00 Refill Venita [facility] 1.284.114 350.1.13.10 4.2.7.2.686 [id number] [facility] 2023-03-22 00:00:00 2023-03-22 00:00:00 Abstract Venita [facility] 1.840.114 350.1.13.10 4.2.7.2.686 [id number] [facility] 2023-03-07 00:00:00 2023-03-07 00:00:00 Orders Only Doctor Unassigned, [place] [facility] 1.2840.114 350.1.13.10 4.2.7.2.686 [id number] [facility] 2023-02-23 08:45:00 2023-02-23 09:00:00 Tourist Information Officer Visit Lab, [place] - Venita Roger [facility] 1.2840.114 350.1.13.10 4.2.7.2.686 [id number] [facility] 2023-02-23 08:00:00 2023-02-23 08:43:37 Office Visit [facility] [facility] 1.2.840.114 350.1.13.10 4.2.7.2.686 [id number] [facility] 2023-02-23 08:00:00 2023-02-23 08:43:37 Outpatient R VENITA [facility] [id number] [facility] 2023-02-23 00:00:00 2023-02-23 00:00:00 Orders Only PurdinBlayne grantine Denny [facility] 1.2.840.114 350.1.13.10 4.2.7.2.686 [id number] [facility] 2019-12-21 13:17:00 2019-12-21 13:17:00 Outpatient [facility] [id number] [facility] 2019-12-10 08:00:00 2019-12-10 08:00:00 Outpatient [facility] [id number] [facility] 2019-09-29 02:38:00 2019-09-29 02:38:00 Outpatient [facility] [id number] [facility] 2019-09-25 15:15:00 2019-09-25 15:15:00 Outpatient [facility] [id number] [facility] Results Test Description Test Time Test Comments Results Result Co mments Source [facility] 2 Glycoprotein G [id number] 14:36:12* Test Item Value Reference Range Interpretation Comme nts HSV I IgG (test code = 7746356245) Positive Negative HSV II IgG (test code = 4460817681) Negative Negative SABRINA (test code = SABRINA) Positive - IgG ant ibody to HSV 1 and/or HSV 2 detected.Negative - No HSV 1 and/or HSV 2 antibody detected.Equivocal - A second sample should be sent. [facility]YCOSYLATED HEMOGLOBIN (A1C)2024-03-15 03:38:34* Test Item Value Reference Range Interpretation Comme [facility] HGB A1C (test code = 4548-4) 6.0 % 4.0-5.7 H SABRINA (test code = SABRINA) Reference RangesNormal: <5.7%Prediabetes: 5.7 - 6.4%Diabetes: > 6.5% Lab Interpretation (test code = 72863-0) Abnormal [facility] 1/2 AG-AB WITH [id number] 01:32:57* Test Item Value Reference Range Interpretation Comme [facility] HIV Semi-quantitative (test code = 23663-9) 0.21 Negative SABRINA (test code = SABRINA) Non-reactive for HIV-1 antigen and HIV-1/HIV-2 antibodies. ?No laboratory evidence of HIV infection. ?Repeat in 2-4 weeks if acute HIV infection is suspected. [facility] STIMULATING [id number] 01:23:12 * Test Item Value Reference Range Interpretation Comme nts TSH (test code = 6842637826) 0.75 0.45-4.70 Lab Interpretation (test cod e = 87455-6) Normal [facility]IP[facility] PANEL (09692)(TOTAL CHOLESTEROL, TRIGLYCERIDES, HDL)2024-03-15 00:51:06* Test Item Value Reference Range Interpretation Comme nts CHOL (test code = 8724721257) 138 mg/dL 120-200 HDL (test code = 2361015396) 45 mg/dL >=50 L HDLC RATIO (test code = 2900192119) 3.1 <=4.5 TRIG (test code = 9686767202) 67 mg/dL 30-170 LDL CHOL (test code = 00384-2) 80 mg/dL <=160 VLDL (test code = 9543868270) 13 mg/dL 5-60 Lab Interpretation (test cod e = 67101-5) Abnormal [facility]. METABOLIC PANEL (40338)2024-03-15 00:50:51* Test Item Value Reference Range Interpretation Comme nts NA (test code = 2233978708) 140 mmol/L 135-145 K (test code = 3150087639) 4.5 mmol/L 3.5-5.0 CL (test code = 3862369149) 102 mmol/L 98-108 CO2 TOTAL (test code = 5243173780) 31 mmol/L 23-31 AGAP (test code = 3426576865) 7 2-16 BUN (test code = 4177676612) 17 mg/dL 7-23 GLUCOSE (test code = 5650574039) 96 mg/dL 70-110 CREATININE (test code = 2160-0) 0.82 mg/dL 0.50-1.04 TOTAL BILI (test code = 8266508564) 0.9 mg/dL 0.1-1.1 CALCIUM (test code = 7386118686) 9.9 mg/dL 8.6-10.6 T PROTEIN (test code = 3637587386) 9.0 g/dL 6.3-8.2 H ALBUMIN (test code = 9529683069) 4.8 g/dL 3.5-5.0 ALK PHOS (test code = 0081682762) 90 U/L 34-122 ALTv (test code = 1742-6) 25 U/L 5-35 AST(SGOT) (test code = 5153588834) 108 U/L 13-40 H eGFR (test code = 14195-5) 86.7 mL/min/1.73m2 CKD-EPI eGFR (2020). Assuming creatinine has been stable day-to-day for at least three months, the eGFR indicates Category G2 (60 - 89 mL/min/1.73 m2) Lab Interpretation (test code = 16488-9) Abnormal [facility] WITH [id number] 23:45:21* Test Item Value Reference Range Interpretation Comme nts WBC (test code = 6690-2) 7.46 4.30-11.10 RBC (test code = 789-8) 4.69 3.93-5.25 HGB (test code = 718-7) 13.6 g/dL 11.6-15.0 HCT (test code = 4544-3) 41.9 % 35.7-45.2 MCV (test code = 787-2) 89.3 fL 80.6-95.5 MCH (test code = 785-6) 29.0 pg 25.9-32.8 MCHC (test code = 786-4) 32.5 g/dL 31.6-35.1 RDW-SD (test code = 02402-9) 41.0 fL 39.0-49.9 RDW-CV (test code = 788-0) 12.5 % 12.0-15.5 PLT (test code = 777-3) 259 166-358 MPV (test code = 88156-4) 11.7 fL 9.5-12.9 NRBC/100 WBC (test code = 8449157728) 0.0 0.0-10.0 NRBC x10^3 (test code = 4319946098) See_Comment [Automated me ssage] The system which generated this result transmitted reference range: 10*3/?L. The reference range was not used to interpret this result as normal/abnormal. GRAN MAT (NEUT) % (test code = 770-8) 60.9 % IMM GRAN % (test code = 9945323453) 0.40 % LYMPH % (test code = 736-9) 28.0 % MONO % (test code = 5905-5) 8.7 % EOS % (test code = 713-8) 1.5 % BASO % (test code = 706-2) 0.5 % GRAN MAT x10^3(ANC) (test code = 3781650828) 4.54 10*3/uL 1.88-7.09 IMM GRAN x10^3 (test code = 0721485843) 0.03 10*3/uL 0.00-0.06 LYMPH x10^3 (test code = 731-0) 2.09 10*3/uL 1.32-3.29 MONO x10^3 (test code = 742-7) 0.65 10*3/uL 0.33-0.92 EOS x10^3 (test code = 711-2) 0.11 10*3/uL 0.03-0.39 BASO x10^3 (test code = 704-7) 0.04 10*3/uL 0.01-0.07 [facility] URINALYSIS W SPECIFIC [id number] 14:18:00* Test Item Value Reference Range Interpretation [...] U APPEAR (test code = 3267) clear [facility] W SPECIFIC [id number] 14:18:00* Test Item Value Reference Range Interpretation [...] U APPEAR (test code = 3267) clear [facility] Notes Date/Time Note Provider Source 2024-08-19 15:19:53 Discussed with pt in clinic [facility] 2024-08-19 15:00:00 Images from the original note were not included. Venipuncture collection performed by clean technique on the left anticubitus. Total of 1 attempts were made. Slight pressure and a bandage/dressing were applied to the site(s). The patient experienced no complications. The following specimens were processed according to instructions and sent to [facility] laboratories per lab order on 08/19/2024 : LT BLUE SST 4 RED LAV 1 PPT DK GREEN (LiHep) DK GREEN (SodH) DURAND DK BLUE (K2) DK BLUE (S) ACD Blood Culture NIPT/NTD [facility] 2024-08-19 13:51:08 Please review and advise. [facility] 2024-08-19 09:48:44 Pt wants to know if getting the shingles vaccine will effect her Labs for the A1C test? Pt wants to get the vaccine before appt today, Please Advise. [facility] Yari Cabral [facility] 2024-04-21 11:09:36 Images from the original note were not included. Notified patient per Dr Martinez: Derek Martinez MD P Cardiology Nurse The echo is within normal. No evidence of bicuspid aortic valve. Patient verbal understanding. Lauren Cabral MA [facility] 2024-03-14 16:45:00 Images from the original note were not included. Venipuncture collection performed by clean technique on the left anticubitus. Total of 1 attempts were made. Slight pressure and a bandage/dressing were applied to the site(s). The patient experienced no complications. The following specimens were processed according to instructions and sent to [facility] laboratories per lab order on TODAY: LT BLUE SST 1 RED LAV 2 PPT LT GREEN (LiHep) 1 DK GREEN (SodH) DURAND DK BLUE (K2) DK BLUE (S) ACD Blood Culture NIPT/NTD Patient has been identified by name and was provided with cup, antiseptic towelette, and clean catch instructions. 2 urine specimen(s) sent. Unpreserved Urine Culture Aptima tube 1 Other urine [facility]
--- NOTE | 2024-12-10 19:09 | EDPHYS ---
Physician Documentation [facility] Name: Kyra Barboza Age: 54 yrs Sex: Female : 1970 Arrival Date: 12/10/2024 Time: 18:38 Bed DX4 Private MD: ED Physician Phill Oates HPI: 12/10 19:10 This 54 yrs old Female presents to ER via Ambulatory with complaints of Finger ec2 pain. 19:10 Patient arrives today for evaluation of pain to the right second metacarpal phalangeal ec2 joint. Patient reports that she was accidentally stuck by a gallito thorn. Reports no fevers or chills, no nausea or vomiting. Reports some redness and irritation to the area and pain with movement.. Historical: - Allergies: 19:07 Codeine; iw 19:07 Erythromycin; iw 19:07 narcotic pain meds; iw - PMHx: 19:07 Hernia; UTI; iw - PSHx: 19:07 section; iw - Infectious Disease History:: Denies. - Social history:: Smoking status: . ROS: 19:10 Constitutional: as per hpi ec2 Exam: 19:10 Constitutional: GEN: NAD Head: atraumatic Eyes: EOMI Ears: External ears are ec2 normal. CV: regular rate LUNGS: no respiratory distress ABD: non-distended SKIN: Localized skin reaction to the right second metacarpal phalangeal joint, intact range of motion, no flexor tenosynovitis appreciated. MSK: no evidence of trauma Vital Signs: 19:06 BP 152 / 95; Pulse 87; Resp 16; Temp 98.7; Pulse Ox 99% on R/A; Weight 68.04 kg; Height iw 5 ft. 0 in. ; Pain 3/10; 19:06 Body Mass Index 29.29 (68.04 kg, 152.4 cm) iw 19:06 Pain Scale: Adult iw MDM: 19:09 Medical Screening Exam initiated ec2 19:11 Data reviewed: vital signs, nurses notes. ED course: Patient arrives today for ec2 evaluation of right second digit irritation and pain. Examination yields skin findings as above. Suspect localized tissue reaction given the localized erythema and area of injury. Doubt septic joint, doubt flexor tenosynovitis, doubt cellulitis. Will discharge home, prescribed steroids and instructed on [id number] medications. Return precautions given.. Administered Medications: No medications were administered Disposition Summary: 12/10/24 19:09 Discharge Ordered Notes: Location: Home ec2 Condition: Stable ec2 Diagnosis - Inflammatory Reaction to the Right 2nd MCP Joint ec2 Followup: ec2 - With: Private Physician - When: - Reason: Re-evaluation by your physician Discharge Instructions: - Discharge Summary Sheet ec2 Forms: - Work release form rv1 - Medication Reconciliation Form ec2 - Antibiotic Education ec2 - Prescription Opioid Use ec2 - Patient Portal Instructions ec2 - Leadership Thank You Letter ec2 Prescriptions: - Prednisone 20 mg Oral Tablet - take 2 tablets ORAL route once daily for 5 days; 10 tablet; Refills: 0, Product ec2 Selection Permitted Signatures: Roxanna Burrell RN RN iw Phill Oates MD MD ec2
--- NOTE | 2024-12-10 19:09 | ER ---
Nurse's Notes [facility] Name: Kyra Barboza Age: 54 yrs Sex: Female : 1970 Arrival Date: 12/10/2024 Time: 18:38 Bed DX4 Private MD: Diagnosis: Inflammatory Reaction to the Right 2nd MCP Joint Presentation: 12/10 19:06 Chief complaint: Patient states: got pricked with gallito thorn on right index finger iw Sunday. Coronavirus screen: At this time, the client does not indicate any symptoms associated with coronavirus-19. Ebola Screen: No symptoms or risks identified at this time. Initial Sepsis Screen: Does the patient meet any 2 criteria? No. Patient's initial sepsis screen is negative. Does the patient have a suspected source of infection? No. Patient's initial sepsis screen is negative. Risk Assessment: Do you want to hurt yourself or someone else? Patient reports no desire to harm self or others. Onset of symptoms was December 07, 2024. 19:06 Method Of Arrival: Ambulatory iw 19:06 Acuity: SATYA 4 iw Triage Assessment: 19:32 General: Appears in no apparent distress. Behavior is calm. Pain: Complains of pain in vc1 dorsal aspect of proximal phalanx of left index finger. EENT: No deficits noted. No signs and/or symptoms were reported regarding the EENT system. Neuro: Level of Consciousness is awake, alert, obeys commands, Oriented to person, place, time, situation, Appropriate for age. Respiratory: Airway is patent Respiratory effort is even, unlabored, Respiratory pattern is regular, symmetrical. Musculoskeletal: Circulation, motion, and sensation intact. Range of motion: intact in all extremities, Swelling present in dorsal aspect of proximal phalanx of left index finger. Historical: - Allergies: 19:07 Codeine; iw 19:07 Erythromycin; iw 19:07 narcotic pain meds; iw - PMHx: 19:07 Hernia; UTI; iw - PSHx: 19:07 section; iw - Infectious Disease History:: Denies. - Social history:: Smoking status: . Screenin:00 [facility] ED Fall Risk Assessment (Adult) History of falling in the last 3 months, vc1 including since admission No falls in past 3 months (0 pts) Confusion or Disorientation No (0 pts) Intoxicated or Sedated No (0 pts) Impaired Gait No (0 pts) Mobility Assist Device Used No (0 pt) Altered Elimination No (0 pt) Score/Fall Risk Level 0 - 2 = Low Risk Oriented to surroundings, Maintained a safe environment, Educated pt \T\ family on fall prevention, incl call for assistance when getting out of bed, Assessed \T\ reinforced patient's understanding of fall precautions. Abuse screen: Denies threats or abuse. Nutritional screening: No deficits noted. Tuberculosis screening: No symptoms or risk factors identified. Vital Signs: 19:06 BP 152 / 95; Pulse 87; Resp 16; Temp 98.7; Pulse Ox 99% on R/A; Weight 68.04 kg; Height iw 5 ft. 0 in. ; Pain 310; 19:06 Body Mass Index 29.29 (68.04 kg, 152.4 cm) iw 19:06 Pain Scale: Adult iw ED Course: 18:42 Patient arrived in ED. mr 18:45 Phill Oates MD is Attending Physician. ec2 19:07 Triage completed. iw 19:07 Arm band placed on. iw 19:31 No provider procedures requiring assistance completed. Patient did not have IV access vc1 during this emergency room visit. 19:32 Patient has correct armband on for positive identification. Seen in diagnostic chair. vc1 Provided Education on: ibuprofen. Administered Medications: No medications were administered Medication: 19:32 VIS not applicable for this client. vc1 Outcome: 19:09 Discharge ordered by . ec2 19:33 Discharged to home ambulatory, vc1 19:33 Condition: stable 19:33 Discharge instructions given to patient, Instructed on discharge instructions, follow up and referral plans. the need for admit, Demonstrated understanding of instructions, follow-up care, medications, Prescriptions given X 1, 19:34 Patient left the ED. vc1 Signatures: Josefa Barone, Reg Reg mr Roxanna Burrell RN RN iw Jalyn Means RN RN vc1 Phill Oates MD MD ec2 Corrections: (The following items were deleted from the chart) 19:08 19:06 BP 152 / 95; Pulse 87bpm; Resp 16bpm; Pulse Ox 99% RA; Temp 98.7F; iw iw
[2024-12-10 21:31] VITALS: BP 152/95; TEMP 98.7; O2SAT 99
== END 2024-12-10 19:34 | disposition home or self-care (01) ==
LOC: ER 18:38
DX: L08.9 Local infection of the skin and subcutaneous tissue, unspecified (principal)
CPT/HCPCS: 99283